=== PATIENT | male | born 1975 | race Hispanic/Latino ===

== ENCOUNTER → 2024-05-31 | Outpatient (CLI) | payer BC ==
[~2024-05-31] MED LIST: ALBUHFA IH; CARV6.25 PO; CYCL5TAB3 PO; DOCU100C33 PO; FLUT1BLS3 IH; FURO-151 PO; MINO100T10 PO; SACU1TAB PO
== END | disposition home or self-care (01) ==
LOC: WHH 11:18
PROVIDERS: ATTEND Family Medicine
DX: T81.31XA Disruption of external operation (surgical) wound, not elsewhere classified, initial encounter (principal); E11.622 Type 2 diabetes mellitus with other skin ulcer; L98.492 Non-pressure chronic ulcer of skin of other sites with fat layer exposed; L97.811 Non-pressure chronic ulcer of other part of right lower leg limited to breakdown of skin; L98.8 Other specified disorders of the skin and subcutaneous tissue; I87.2 Venous insufficiency (chronic) (peripheral); I11.0 Hypertensive heart disease with heart failure; I50.9 Heart failure, unspecified; G47.33 Obstructive sleep apnea (adult) (pediatric); I89.0 Lymphedema, not elsewhere classified; E78.00 Pure hypercholesterolemia, unspecified; E66.01 Morbid (severe) obesity due to excess calories; I25.10 Atherosclerotic heart disease of native coronary artery without angina pectoris; Z68.44 Body mass index [BMI] 60.0-69.9, adult; Z79.899 Other long term (current) drug therapy; Y83.8 Other surgical procedures as the cause of abnormal reaction of the patient, or of later complication, without mention of misadventure at the time of the procedure; Y92.238 Other place in hospital as the place of occurrence of the external cause
CPT/HCPCS: 99215; A6197; A4450; A6260

== ENCOUNTER 2024-09-07 09:06 | Inpatient (IN) | payer BC ==
[~2024-09-07] VITALS: Ht 170.2 cm; Wt 195.0 kg
--- NOTE | 2024-09-07 09:57 | NUR ---
SPOKE TO [facility] AWARE OF DIRECT ADMISSION, STATES HE WILL COME SEE PT, PENDING ORDERS.
[2024-09-07] MEDS ORDERED: PHARMACY COMMUNICATION MISC SCH (10:30)
[2024-09-07] MEDS ORDERED: hydrALAZine 20MG/ML VIAL IV PRN (10:30)
[2024-09-07] MEDS ORDERED: VANCOMYCIN HCL 1.25 GM/250 ML BAG IV ONE (10:30)
[2024-09-07] MEDS ORDERED: LACTULOSE 20 GM/30 ML UDCUP PO PRN (10:30)
[2024-09-07] MEDS ORDERED: morPHINE 2 MG SYG IVP PRN (10:30)
[2024-09-07] MEDS ORDERED: acetaMINOPHEN 325 MG TAB PO PRN (10:30)
[2024-09-07] MEDS ORDERED: CARV12.511 PO (10:42)
[2024-09-07] MEDS ORDERED: SACU1TAB7 PO (10:42)
[2024-09-07] MEDS ORDERED: VITAD50000 PO (10:42)
[2024-09-07] MEDS ORDERED: LINE600T14 PO (10:43)
[2024-09-07] MEDS ORDERED: PoTASSium chloRIDE 20MEQ ER 20 MEQ ERTAB PO PRN (11:00)
[2024-09-07] MEDS ORDERED: PoTASSium chloRIDE 20MEQ/100ML 100 ML IV PRN (11:00)
[2024-09-07] MEDS ORDERED: DEXTROSE 50%-WATER 50 ML DISP.SYRIN IV PRN (11:00)
[2024-09-07] MEDS ORDERED: GLUCAGON 1MG KIT 1 MG ML IM PRN (11:00)
[2024-09-07] MEDS ORDERED: PoTASSium chl 10% ELIXIR 20MEQ 20 MEQ/15 ML UDCUP PO PRN (11:00)
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
[2024-09-07 11:25] LABS: BASOPHILS # (AUTO) 0.03 K/uL (0.00-0.20); BASOPHILS % (AUTO) 0.7 % (0.0-5.0); EOSINOPHILS # (AUTO) 0.08 K/uL (0.00-0.70); HEMATOCRIT 40.9 % (42-54); IMMATURE GRANULOCYTE ABSOLUTE 0.02 K/uL (0-1); LYMPHOCYTES # (AUTO) 0.5 K/uL (1.0-4.8); MEAN CORPUSCULAR HEMOGLOBIN 27.2 pg (27.0-33.0); MEAN CORPUSCULAR HGB CONC 29.8 g/dL (32.0-36.0); MEAN CORPUSCULAR VOLUME 91.1 fL (79-99); MONOCYTES # (AUTO) 0.5 K/uL (0.1-1.0); MONOCYTES % (AUTO) 12.8 % (3.0-13.0); NEUTROPHILS # (AUTO) 2.9 K/uL (1.8-7.7); PLATELET COUNT (AUTO) 254 K/uL (130-400); RED BLOOD CELL COUNT(AUTO) 4.49 MIL/uL (4.50-6.20); RED CELL DISTRIBUTION WIDTH 15.4 % (11.0-15.5); WHITE BLOOD COUNT (AUTO) 4.1 K/uL (4.8-10.8)
[2024-09-07] MEDS ORDERED: VANCOMYCIN PROTOCOL PER PHARMACY IV SCH (11:30)
[2024-09-07] MEDS: INSULIN humuLIN R 100 UNIT/ML 3ML SQ SCH (11:30)
[2024-09-07] MEDS: VANCOMYCIN 2GM/500 ML BAG 500 ML IV ONE (12:29)
[2024-09-07 12:30] LABS: ERYTHROCYTE SEDIMENTATION RATE 93 MM/HR (0-15)
[2024-09-07] MEDS: metRONIDazole 500MG/100ML BAG IV SCH (12:31)
[2024-09-07] MEDS: ceFEPime HCL 2 GM VIAL IVPB SCH (12:31)
--- NOTE | 2024-09-07 12:36 | NUR ---
NURSING: WENT INTO ROOM TO CHECK GLUCOSE, PT AND STATE PT IS NOT DIABETIC, PT WAS PREVIOUSLY ON INSULIN, BUT NOT NOW, PT IS REFUSING GLUCOSE CHECKS. WILL LET PROVIDER KNOW.
--- NOTE | 2024-09-07 12:49 | HMCIMG ---
CT RIGHT LOWER EXTREMITY WITHOUT CONTRAST INDICATION: Right lower extremity gangrene COMPARISON: None TECHNIQUE: Contiguous axial computed tomography imaging using 3 mm slice thickness was obtained through the right leg without contrast material. Coronal and sagittal reconstructions were also obtained. CT was performed with one or more of the following dose reduction techniques: Automated exposure control, adjustment of the mA and/or kV according to patient size, or use of iterative reconstruction technique. FINDINGS/IMPRESSION: Mild to moderate soft tissue swelling along the mid to distal right leg. Large soft tissue wound along the anteromedial proximal to mid right leg without subjacent organized/general fluid collection, subcutaneous emphysema, myoedema, or any periosteal reaction, cortical erosive changes, or any abnormal subperiosteal bone resorption to suggest osteomyelitis.
--- NOTE | 2024-09-07 13:13 | NUR ---
REPORT GIVEN TO AMMON JOYNER AT 1300, PT STABLE NO C/O PAIN NOW, AT BEDSIDE.
[2024-09-07 13:45] VITALS: BP 173/97; PULSE 93; RESP 18; TEMP 97.9
--- NOTE | 2024-09-07 13:59 | NUR ---
DCP: HOME met with pt and his Charisma Rosales [phone]. Pt reports he was laid off from work last week. 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 does pt's wound care and changes his dressing 2x a day. pt has no DME or in home care services. PCP is Padmini Schneider at [facility] and uses [facility] for rx. Pt refuses to consider SNF or LTAC and will return home at hi. to transport Addendum: 09/07/24 at 1404 by CINDI KIRAN Amended: Links added.
--- NOTE | 2024-09-07 14:00 | NUR ---
PT is received from ER He is in no distress and is with his during admission. He is oriented to the room and the use of the call light. Surgical cosult Dr Negron was notified of the consultaion. IV antibiotics are infusing by PIV. The call craven is left in reach and the bed in a low position.
--- NOTE | 2024-09-07 14:04 | HMCIMG ---
ULTRASOUND VENOUS DOPPLER, BILATERAL LOWER EXTREMITIES INDICATION: Bilateral lower extremity pain and swelling TECHNIQUE: Routine grayscale and color Doppler ultrasound of the bilateral lower extremity veins performed. COMPARISON: No priors. FINDINGS: The demonstrated veins of the bilateral lower extremity including the common femoral vein, femoral vein, and popliteal vein are associated with normal compressibility, augmentation, and flow. Normal respiratory variation was identified. No evidence for echogenic intraluminal thrombus formation. 3.7 x 1.8 x 2.5 cm posterior left knee gastrocnemius semimembranosus bursal cyst. IMPRESSION: No sonographic evidence for deep venous thrombosis within the bilateral lower extremity veins. 3.7 x 1.8 x 2.5 cm posterior left knee gastrocnemius semimembranosus bursal cyst.
--- NOTE | 2024-09-07 14:04 | HMCIMG ---
ULTRASOUND ARTERIAL DUPLEX LOWER EXTREMITY, BILATERAL INDICATION: Peripheral vascular disease. TECHNIQUE: Routine grayscale, color Doppler, and power Doppler ultrasound of the bilateral lower extremity arteries were obtained. COMPARISON: None FINDINGS: Velocities in cm/sec. Examination is slightly limited secondary to patient body habitus. RIGHT: ROOM SERVICE WAITER/WAITRESS: 153 SFA: Prox 83, Mid 93, Distal 81 Popliteal: 59 proximally and 84 distally Anterior Tibial: 58 distally Posterior Tibial: 35 Dorsalis Pedis: 63 Triphasic flow along the right lower extremity arterial system. LEFT: ROOM SERVICE WAITER/WAITRESS: 133 SFA: Prox 81, Mid 46, Distal 67 Popliteal: 46 proximally and 63 distally Anterior Tibial: 53 distally Posterior Tibial: 53 Dorsalis Pedis: 48 Triphasic flow along the left lower extremity arterial system. Mild calcific plaque along the bilateral lower extremity arterial system marcus. IMPRESSION: Limitations as reported. No evidence for high-grade flow-rate limiting stenosis. Parameters as reported.
--- NOTE | 2024-09-07 15:24 | NUR ---
[facility] Consult: Patient assessed by wound healing team. See wound assessment. Assessment and recommendations provided to primary nurse. Education provided. Wound care done. Addendum: 09/08/24 at 1614 by ROCK HUNT RN RN/ Amended: Links added.
--- NOTE | 2024-09-07 15:56 | CONS ---
MIRYAM GAMEZ Jr. 09/07/24 1556: CONSULT NOTE: Consulting physician: Tej Consulting service: General surgery Reason for consultation: Right lower extremity wound History of present illness: This is a 48-year-old male with a medical history listed below that has been consulted to surgery for nonhealing lower extremity wound that has developed over the last few weeks. Patient has been seeing Wound Care but due to concerns of worsening gangrenous presentation patient was brought to the hospital for further evaluation. Initial imaging concerning for open wound with gangrenous findings and versus cyst noted nearby appearing similar to abscess. Wound care has evaluated patient will be placing Dakin's WBCs 4.1 with a hemoglobin of 12.2. Patient is currently IV fluids and IV antibiotics. Patient is NPO. Medical history: Type 2 diabetes Hypertension Peripheral Vascular disease Surgical history: None reported Review of systems: General: No Fever, No Chills, No Night Sweats, No Fatigue, No Malaise, No Appetite, No Other HEENT: No Head Aches, No Visual Changes, No Eye Pain, No Ear Pain, No Dysphasia, No Sinus Congestion, No Post Nasal Drip, No Sore Throat, No Other Pulmonary: No Dyspnea, No Cough, No Pleuritic Chest Pain, No Other Cardiovascular: No: Chest Pain, Palpitations, Orthopnea, Paroxysmal No Dyspnea, Edema, Lt Headedness, Other Gastrointestinal: No: Nausea, Vomiting, Diarrhea, Constipation, Melena, Hematochezia, Other Genitourinary: No Dysuria, No Frequency, No Incontinence, No Hematuria, No Retention, No Other Musculoskeletal: No: other, neck pain, shoulder pain, arm pain, back pain, hand pain, leg pain, foot pain Skin: No Urticaria, No Rash, No Other Neurological: No: Weakness, Numbness, Incoordination, Change in speech, Confusion, Seizures, Other Physical exam: General: Awake alert and oriented Heart: Regular rate and rhythm} Lungs: Clear to auscultation no distress Abdomen: [Soft, nontender, nondistended Right lower extremity with infected right lower extremity wound and possible forming abscess Assessment: This is a 48-year-old male with concerns of right lower extremity wound Plan: Patient to continue with wound care recommendations Plan will be for debridement with Dr. Sharif Patient to continue with the IV fluids and IV antibiotics Warm compresses to be applied to lower extremity and possible abscess site Dr. Sharif to be updated on patient's status and surgical team to follow patient closely RAINER SHARIF MD 09/09/24 1510: CONSULT NOTE: as above patient seen and evaluated will proceed with debridement of 7 RLE wounds. MIRYAM GAMEZ Jr. Sep 07, 2024 15:56 RAINER SHARIF MD Sep 09, 2024 15:10
[2024-09-07 17:11] VITALS: BP 171/101; PULSE 94; RESP 18; TEMP 97.9
[2024-09-07 20:00] VITALS: BP 141/80; PULSE 99; RESP 20; TEMP 98
[2024-09-07] MEDS: ENOXAPARIN SODIUM 40 MG/0.4 ML SYRINGE SQ SCH (21:05)
[2024-09-08] VITALS (7 sets, daily range): BP systolic 133–164; BP diastolic 82–98; PULSE 90–98; RESP 20; TEMP 97.8–99; O2SAT 95
--- NOTE | 2024-09-08 06:17 | CONS ---
INFECTIOUS DISEASE CONSULTATION NOTE DATE OF SERVICE: 09/07/2024 REQUESTING PHYSICIAN: Parisa Solorzano NP REASON FOR CONSULTATION: Right leg ulcer and abscess. HISTORY OF PRESENT ILLNESS: A 48-year-old male with morbid obesity, obstructive sleep apnea, diabetes mellitus, who presented to the hospital with right leg ulcer and swelling. The patient noticed to have ulceration to the right leg, for which he was getting antibiotic [facility]. Due to increasing redness and pain, presented to the hospital for further care. Venous Doppler has been done, pending official report. The patient has been started on vancomycin, cefepime, and Flagyl. The patient is known to me from previous admission, was found to have left groin pseudoaneurysm and wound infection. The patient denied cough, shortness of breath. No fever, no chills. PAST MEDICAL HISTORY: * Morbid obesity. * Diabetes mellitus. * Hypertension. * Peripheral vascular disease. * Presumed multidrug resistant organism. * Obstructive sleep apnea. * Lower extremity cellulitis. * Multiple skin ulcers. PAST SURGICAL HISTORY: * Angiogram and stenting of the iliac vein. * Left groin wound infection, status post debridement. ALLERGIES: No known drug allergy. CURRENT MEDICATIONS: Include: * Vancomycin. * Cefepime. * Flagyl. * Lovenox. * Insulin. SOCIAL HISTORY: . No alcohol, tobacco, or illicit drug use. FAMILY HISTORY: Noncontributory. REVIEW OF SYSTEMS: Greater than 10 systems were reviewed and negative except as documented above. PHYSICAL EXAMINATION: GENERAL: On examination, young male, awake, in no acute distress. VITAL SIGNS: Temperature 97.5, pulse 100, respiratory rate 18, BP 164/97. EYES: No icterus. Pupils equal and reactive. HENT: No oral thrush seen. Moist oral mucosa. NECK: Supple. No JVD or thyromegaly. LUNGS: Good air entry. No rales, no rhonchi. CARDIOVASCULAR: S1, S2 regular, tachycardic. No murmur heard. ABDOMEN: Morbidly obese, soft, nontender. Bowel sound is present. CENTRAL NERVOUS SYSTEM: Awake, alert, oriented x 3. No focal deficits. SKIN: Extensive pustules involving the abdominal wall and the lower extremities ____ involving the anterior aspect of the right leg with necrosis. So, there is area of fluctuance and abscess involving plantar aspect of the right leg. There is an ulcer involving the anterior right thigh. LABORATORY DATA: WBC 4.1, hemoglobin 12.2, platelet 254. RADIOLOGY: Venous Doppler pending. ASSESSMENT: A 48-year-old male presenting with leg ulcer, groin swelling, and redness. CURRENT PROBLEMS: Include: * Right lower extremity ulcer. * Right leg abscess. * Generalized pustulosis. * Cellulitis. * Morbid obesity. * Diabetes mellitus. * Obstructive sleep apnea. PLAN: * Continue cefepime. * Continue vancomycin. * Continue Flagyl. * Continue Hibiclens shower. * Continue DVT prophylaxis. * Monitor electrolytes. * Continue pain management. * The patient will be followed up closely. Thank you for allowing me to participate in the care of this patient. TID: [id number] RECEIPT: [id number]
[2024-09-08 06:50] LABS: BASOPHILS # (AUTO) 0.04 K/uL (0.00-0.20); EOSINOPHILS # (AUTO) 0.21 K/uL (0.00-0.70); HEMATOCRIT 36.3 % (42-54); IMMATURE GRANULOCYTE ABSOLUTE 0.02 K/uL (0-1); LYMPHOCYTES # (AUTO) 0.5 K/uL (1.0-4.8); LYMPHOCYTES % (AUTO) 11.2 % (21.0-51.0); MEAN CORPUSCULAR HEMOGLOBIN 27.3 pg (27.0-33.0); MEAN CORPUSCULAR HGB CONC 30.6 g/dL (32.0-36.0); MEAN CORPUSCULAR VOLUME 89.4 fL (79-99); MONOCYTES # (AUTO) 0.5 K/uL (0.1-1.0); MONOCYTES % (AUTO) 12.2 % (3.0-13.0); NEUTROPHILS # (AUTO) 2.9 K/uL (1.8-7.7); NEUTROPHILS % (AUTO) 70.1 % (40.0-77.0); PLATELET COUNT (AUTO) 244 K/uL (130-400); RED BLOOD CELL COUNT(AUTO) 4.06 MIL/uL (4.50-6.20); RED CELL DISTRIBUTION WIDTH 15.7 % (11.0-15.5); WHITE BLOOD COUNT (AUTO) 4.2 K/uL (4.8-10.8)
[2024-09-08 06:58] LABS: CREATININE 0.7 mg/dL (0.5-1.3); MAGNESIUM 1.7 mg/dL (1.80-2.40); POTASSIUM 4.1 mmol/L (3.5-5.1)
[2024-09-08] MEDS: HONEY 1 APPL/ML TUBE TP SCH (10:37)
[2024-09-08] MEDS: SODIUM HYPOCHLORITE 0.25% [HALF STRENGTH] 473 ML TOPICAL SOLN TP SCH (10:37)
--- NOTE | 2024-09-08 12:47 | PN ---
[facility] PROGRESS NOTE Date Patient Seen: Sep 08, 2024 Time of Visit: 12:27 Supervising Physician: [Dr. Jett] Primary Care Physician: Dr. Christina Schneider Outpatient Specialists: Wound care Inpatient Consults: Wound care, ID and Gen surgery PROBLEM LIST: Right leg gangrenous wound. Diabetes mellitius type2 Hypertension May-Thurner syndrome Protein malnutrition Severe Obesity - BMI 67.3 Hx of multidrug resistant organism Acinetobacter Baumanni left inquinal surgical wound. Hx of left inguinal surgical wound complications status post foreign body removal in the left common femoral artery and vein by Dr. Park on 05/04/24 with Wound Vac Hx left inguinal soft tissue hematoma 7 x [address] scan on 05/20/2024 Plan: Continue IV abx per ID, pending wound cultures Pending I&D on with general surgery GI and DVT ppx INTERVAL HISTORY: [Patient is evaluated at bedside. Continues with wound care per wound care recommendation. No osteomyelitis per CT lower extremity. Labs WNL. He is pending I&D per General surgery on . We will continue IV antibiotics in the meantime. Pending wound culture results. Venous doppler negative for DVT. Pain is well controlled.] REVIEW OF SYSTEMS: 12 point ROS reviewed with patient. Pertinent positives mentioned above. Otherwise negative. PHYSICAL EXAM: GENERAL: Alert, weak, awake oriented x 3. Severely obese HEENT: EOMI, Sclera non icteric, moist mucosa NECK: Supple, no JVD, trachea midline LUNGS: Clear breath sounds bilaterally. No wheezes HEART: Regular rate and rhythm. Normal S1 and S2, without murmurs ABD: Abdomen soft, nontender. Bowel sounds present EXT: No clubbing cyanosis or edema. RLE necrotic wound with purulent drainage NEURO: Alert and oriented to person, follows commands Vital Signs (last 8hr) Date Time Temp Pulse Resp B/P (MAP) Pulse Ox O2 Delivery O2 Flow Rate FiO2 09/08/24 08:00 97.9 90 20 133/90 95 Room Air LABS: Hematology Labs: Test 09/08/24 06:36 09/07/24 11:17 Range/Units White Blood Count 4.2 L 4.8-10.8 K/uL Red Blood Count 4.06 L 4.50-6.20 MIL/uL Hemoglobin 11.1 L 14.0-18.0 g/dL Hematocrit 36.3 L 42-54 % Mean Corpuscular Volume 89.4 79-99 fL Mean Corpuscular Hemoglobin 27.3 27.0-33.0 pg Mean Corpuscular Hemoglobin Concent 30.6 L 32.0-36.0 g/dL Red Cell Distribution Width 15.7 H 11.0-15.5 % Platelet Count 244 130-400 K/uL Mean Platelet Volume 9.5 7.5-10.5 fL Immature Granulocyte % (Auto) 0.5 0-1 % Neutrophils (%) (Auto) 70.1 40.0-77.0 % Lymphocytes (%) (Auto) 11.2 L 21.0-51.0 % Monocytes (%) (Auto) 12.2 3.0-13.0 % Eosinophils (%) (Auto) 5.0 0.0-8.0 % Basophils (%) (Auto) 1.0 0.0-5.0 % Neutrophils # (Auto) 2.9 1.8-7.7 K/uL Lymphocytes # (Auto) 0.5 L 1.0-4.8 K/uL Monocytes # (Auto) 0.5 0.1-1.0 K/uL Eosinophils # (Auto) 0.21 0.00-0.70 K/uL Basophils # (Auto) 0.04 0.00-0.20 K/uL Absolute Immature Granulocyte (auto 0.02 0-1 K/uL Nucleated Red Blood Cells 0.0 0.0-0.19 % Red Blood Cell Morphology ANISO 1+ Erythrocyte Sedimentation Rate 93 H 0-15 MM/HR Chemistry Labs: Test 09/08/24 06:36 09/07/24 11:17 Range/Units Sodium Level 138 136-145 mmol/L Potassium Level 4.1 3.5-5.1 mmol/L Chloride Level 103 101-111 mmol/L Carbon Dioxide Level 28 21-32 mmol/L Blood Urea Nitrogen 12 7-18 mg/dL Creatinine 0.7 0.5-1.3 mg/dL Glomerular Filtration Rate Calc 113 >90 mL/min Random Glucose 97 70-105 mg/dL Total Calcium 8.9 8.5-10.1 mg/dL Magnesium Level 1.70 L 1.80-2.40 mg/dL Lactic Acid Level 1.6 0.8-2.5 mmol/L C-Reactive Protein, Quantitative 38.90 H 0.5-3.0 mg/L Procalcitonin < 0.05 L 0.05-0.5 ng/mL DIAGNOSTICS / RADIOLOGY RESULTS: [ ] PLAN Diet: Heart healthy HTN: Hydralazine for systolic BP greater than 160. DM: Insulin sliding scale as ordered. DVT prophylaxis: Lovenox . GI prophylaxis: Protonix. Antiemetic: Zofran. Constipation: Lactulose. Pain: Tylenol /[place]/morphine for pain management and will adjust management as necessary. NEURO: Minimize central acting medications as possible. Maintain fall precautions, adequate lighting during the day PULMONARY: Supplemental 02 as needed. Maintain aspiration precautions at all times CARDIOVASCULAR: Follow hemodynamics. Vital signs per facility protocol GI & NUTRITION: Continue with nutritional support. Continue stool softeners and laxatives as needed. KIDNEYS & ELECTROLYTES: Strict monitoring of intake, output and overall fluid balance. Avoid nephrotoxic medications to the extent possible. Medications to be dosed according to renal function. Monitor electrolytes and replace as needed ENDOCRINE: Maintain blood glucose between 100-180 at all times. Hypoglycemia protocol in place INFECTIOUS DISEASE: Trend temperature, WBC and procalcitonin level Follow cultures, deescalate antibiotics as soon as possible. Panculture if new onset fever ONCOLOGY/HEMATOLOGY/COAGULATION: Monitor for s/s of bleeding Monitor hemoglobin, coagulation studies as needed SKIN: Pressure ulcer prevention per facility protocol Specialty mattress ORTHO/REHAB: Continue PT/OT Prophylaxis: Continue GI and DVT prophylaxis Code Status: Full Resuscitation Disposition: TBD Other: Total patient care time exceeds 35 minutes excluding all procedures. MANJINDER REDMOND Sep 08, 2024 12:47
[2024-09-08] MEDS: VANCOMYCIN 1.75 GM/250 ML BAG 250 ML IV SCH (13:10)
[2024-09-08 13:28] LABS: INR 1.08 (0.85-1.15); PROTHROMBIN TIME 11.4 SEC (9.6-11.6)
--- NOTE | 2024-09-08 14:42 | NUR ---
[facility] Follow-up: Patient re-assessed by wound healing team. See wound assessment. Assessment and recommendations provided to primary nurse. Education provided. Addendum: 09/08/24 at 1643 by ROCK HUNT RN RN/ Amended: Links added.
--- NOTE | 2024-09-08 18:16 | CONS ---
CONSULTATION NOTE Date of Service: Sep 08, 2024 Reason for Consultation: [ ] Requesting Physician: [ ] HISTORY OF PRESENT ILLNESS: [ ] REVIEW OF SYSTEMS CONSTITUTIONAL: Denies fever, chills, or fatigue. HEAD/FACE: No signs of trauma. EENT: Denies eye pain, blurred vision, double vision, or light sensitivity. RESPIRATORY: Denies shortness of breath, cough, wheezing CARDIOVASCULAR: Denies chest pain, palpitation, syncope GASTROINTESTINAL/ABDOMINAL: Denies abdominal pain, constipation, diarrhea, nausea or vomiting GENITOURINARY: Denies dysuria or hematuria. MUSCULOSKELETAL: Denies joint pain, tenderness, or trauma. INTEGUMENTARY: Denies rash or itchiness NEUROLOGICAL/PSYCH: Denies anxiety, depression, heat or cold intolerance. PAST MEDICAL HISTORY: [ ] PAST SURGICAL HISTORY: [ ] PAST SOCIAL HISTORY: [ ] FAMILY HISTORY: [ ] Coded Allergies: No Known Allergies (Unverified Allergy, Unknown, 04/28/24) PHYSICAL EXAM EYES: Anicteric. Pupils equal and reactive. HENT: No oral thrush seen, moist Oral mucosa NECK: Supple, no JVD or thyromegaly. LUNGS: Good air entry. No rales, no rhonchi. CARDIOVASCULAR: S1, S2 regular. No murmur heard. ABDOMEN: Soft, non tender, bowel sounds present, no organomegaly CENTRAL NERVOUS SYSTEM: Awake, alert, oriented x 3. No focal deficits. SKIN: No rashes, no swelling. LYMPHATICS: No peripheral lymphadenopathy MUSCULOSKELETAL: No joint swelling, erythema or tenderness. EXTREMITIES: No cyanosis or clubbing BACK: No deformity, no pressure ulcer. GENITOURINARY: No dysuria or hematuria Vital Sign (Last 24 Hours) 09/07/24 09/08/24 09:32 16:00 Temp 98.1 Pulse 90 Resp 20 B/P (MAP) 145/98 Pulse Ox 96 O2 Delivery Room Air O2 Flow Rate 0 FiO2 21 LABS: Laboratory: Test 09/08/24 13:12 09/08/24 06:36 09/07/24 11:17 Range/Units Prothrombin Time 11.4 9.6-11.6 SEC Prothromb Time International Ratio 1.08 0.85-1.15 White Blood Count 4.2 L 4.8-10.8 K/uL Red Blood Count 4.06 L 4.50-6.20 MIL/uL Hemoglobin 11.1 L 14.0-18.0 g/dL Hematocrit 36.3 L 42-54 % Mean Corpuscular Volume 89.4 79-99 fL Mean Corpuscular Hemoglobin 27.3 27.0-33.0 pg Mean Corpuscular Hemoglobin Concent 30.6 L 32.0-36.0 g/dL Red Cell Distribution Width 15.7 H 11.0-15.5 % Platelet Count 244 130-400 K/uL Mean Platelet Volume 9.5 7.5-10.5 fL Immature Granulocyte % (Auto) 0.5 0-1 % Neutrophils (%) (Auto) 70.1 40.0-77.0 % Lymphocytes (%) (Auto) 11.2 L 21.0-51.0 % Monocytes (%) (Auto) 12.2 3.0-13.0 % Eosinophils (%) (Auto) 5.0 0.0-8.0 % Basophils (%) (Auto) 1.0 0.0-5.0 % Neutrophils # (Auto) 2.9 1.8-7.7 K/uL Lymphocytes # (Auto) 0.5 L 1.0-4.8 K/uL Monocytes # (Auto) 0.5 0.1-1.0 K/uL Eosinophils # (Auto) 0.21 0.00-0.70 K/uL Basophils # (Auto) 0.04 0.00-0.20 K/uL Absolute Immature Granulocyte (auto 0.02 0-1 K/uL Nucleated Red Blood Cells 0.0 0.0-0.19 % Sodium Level 138 136-145 mmol/L Potassium Level 4.1 3.5-5.1 mmol/L Chloride Level 103 101-111 mmol/L Carbon Dioxide Level 28 21-32 mmol/L Blood Urea Nitrogen 12 7-18 mg/dL Creatinine 0.7 0.5-1.3 mg/dL Glomerular Filtration Rate Calc 113 >90 mL/min Random Glucose 97 70-105 mg/dL Total Calcium 8.9 8.5-10.1 mg/dL Magnesium Level 1.70 L 1.80-2.40 mg/dL Red Blood Cell Morphology ANISO 1+ Erythrocyte Sedimentation Rate 93 H 0-15 MM/HR Lactic Acid Level 1.6 0.8-2.5 mmol/L C-Reactive Protein, Quantitative 38.90 H 0.5-3.0 mg/L Procalcitonin < 0.05 L 0.05-0.5 ng/mL DIAGNOSTICS / RADIOLOGY: [ ] PROBLEM LIST : PLAN: [ ] BARBARA ROBERTSON MD Sep 08, 2024 18:16
--- NOTE | 2024-09-08 20:34 | PN ---
INFECTIOUS DISEASE PROGRESS NOTE Date of Service: Sep 08, 2024 SUBJECTIVE: This is a 48-year-old male patient who was seen and examined at bedside in room 327. Patient is awake, alert and oriented x3. Patient with a draining wound to the right inner leg. Patient also has an open wound on the right thigh and an abscess on the right lower leg. We will follow up on the culture results. Patient has been evaluated by the surgical team. No fever, temperature is 97.9. Patient will continue on cefepime and vancomycin. No episodes of nausea or vomiting reported. Will continue to follow patient's care. PHYSICAL EXAM EYES: Anicteric. Pupils equal and reactive. HENT: No oral thrush seen, moist Oral mucosa. NECK: Supple, no JVD or thyromegaly. LUNGS: Good air entry. No rales, no rhonchi. CARDIOVASCULAR: S1, S2 regular. No murmur heard. ABDOMEN: Soft, non tender, bowel sounds present, no organomegaly. CENTRAL NERVOUS SYSTEM: Awake, alert, oriented x 3. SKIN: No rashes, no swelling. LYMPHATICS: No peripheral lymphadenopathy. MUSCULOSKELETAL: No joint swelling, erythema or tenderness. EXTREMITIES: No cyanosis or clubbing. BACK: No deformity, no pressure ulcer. GENITOURINARY: No dysuria or hematuria. Vital Sign (Last 12 Hours) 09/08/24 09/08/24 12:00 16:00 Temp 98.1 98.1 Pulse 91 90 Resp 20 20 B/P (MAP) 143/83 145/98 Pulse Ox 95 96 O2 Delivery Room Air Room Air LABS: Laboratory: Test 09/08/24 13:12 09/08/24 06:36 09/07/24 11:17 Range/Units Prothrombin Time 11.4 9.6-11.6 SEC Prothromb Time International Ratio 1.08 0.85-1.15 White Blood Count 4.2 L 4.8-10.8 K/uL Red Blood Count 4.06 L 4.50-6.20 MIL/uL Hemoglobin 11.1 L 14.0-18.0 g/dL Hematocrit 36.3 L 42-54 % Mean Corpuscular Volume 89.4 79-99 fL Mean Corpuscular Hemoglobin 27.3 27.0-33.0 pg Mean Corpuscular Hemoglobin Concent 30.6 L 32.0-36.0 g/dL Red Cell Distribution Width 15.7 H 11.0-15.5 % Platelet Count 244 130-400 K/uL Mean Platelet Volume 9.5 7.5-10.5 fL Immature Granulocyte % (Auto) 0.5 0-1 % Neutrophils (%) (Auto) 70.1 40.0-77.0 % Lymphocytes (%) (Auto) 11.2 L 21.0-51.0 % Monocytes (%) (Auto) 12.2 3.0-13.0 % Eosinophils (%) (Auto) 5.0 0.0-8.0 % Basophils (%) (Auto) 1.0 0.0-5.0 % Neutrophils # (Auto) 2.9 1.8-7.7 K/uL Lymphocytes # (Auto) 0.5 L 1.0-4.8 K/uL Monocytes # (Auto) 0.5 0.1-1.0 K/uL Eosinophils # (Auto) 0.21 0.00-0.70 K/uL Basophils # (Auto) 0.04 0.00-0.20 K/uL Absolute Immature Granulocyte (auto 0.02 0-1 K/uL Nucleated Red Blood Cells 0.0 0.0-0.19 % Sodium Level 138 136-145 mmol/L Potassium Level 4.1 3.5-5.1 mmol/L Chloride Level 103 101-111 mmol/L Carbon Dioxide Level 28 21-32 mmol/L Blood Urea Nitrogen 12 7-18 mg/dL Creatinine 0.7 0.5-1.3 mg/dL Glomerular Filtration Rate Calc 113 >90 mL/min Random Glucose 97 70-105 mg/dL Total Calcium 8.9 8.5-10.1 mg/dL Magnesium Level 1.70 L 1.80-2.40 mg/dL Red Blood Cell Morphology ANISO 1+ Erythrocyte Sedimentation Rate 93 H 0-15 MM/HR Lactic Acid Level 1.6 0.8-2.5 mmol/L C-Reactive Protein, Quantitative 38.90 H 0.5-3.0 mg/L Procalcitonin < 0.05 L 0.05-0.5 ng/mL ASSESSMENT: Right lower extremity abscess. Right leg ulcer. Right thigh wound. Generalized pustulosis. Cellulitis to the lower extremity. Diabetes mellitus. Peripheral vascular disease. Morbid obesity. Recent right iliofemoral venogram/IVUS. May-Thurner syndrome. PLAN: Continue cefepime. Continue vancomycin. Continue metronidazole. Continue wound care. Continue pain management. We will follow up on the cultures results. We will monitor electrolytes. This case was reviewed and discussed with my supervising physician and the above assessment and plan was formulated and agreed upon. ATTESTATION BY PHYSICIAN I have seen and examined the patient. I reviewed the documentation, medical decision making, and treatment plan as noted by the mid-level provider above. I agree with the findings and plan of care. CHATO BRIAN MD, [facility]IRTA [facility] Sep 08, 2024 20:34
[2024-09-08] MEDS: MAGNESIUM 2GM PREMIX 50ML 50 ML IV PRN (21:30)
[2024-09-09] VITALS (30 sets, daily range): BP systolic 125–160; BP diastolic 77–99; PULSE 64–111; RESP 10–24; TEMP 97.5–98.7; O2SAT 96
[2024-09-09 06:05] LABS: BASOPHILS # (AUTO) 0.02 K/uL (0.00-0.20); BASOPHILS % (AUTO) 0.5 % (0.0-5.0); EOSINOPHILS # (AUTO) 0.18 K/uL (0.00-0.70); EOSINOPHILS % (AUTO) 4.1 % (0.0-8.0); HEMATOCRIT 37.1 % (42-54); IMMATURE GRANULOCYTE ABSOLUTE 0.02 K/uL (0-1); LYMPHOCYTES # (AUTO) 0.5 K/uL (1.0-4.8); LYMPHOCYTES % (AUTO) 11.3 % (21.0-51.0); MEAN CORPUSCULAR HGB CONC 30.5 g/dL (32.0-36.0); MEAN CORPUSCULAR VOLUME 88.8 fL (79-99); MONOCYTES # (AUTO) 0.5 K/uL (0.1-1.0); MONOCYTES % (AUTO) 11.3 % (3.0-13.0); NEUTROPHILS # (AUTO) 3.2 K/uL (1.8-7.7); NEUTROPHILS % (AUTO) 72.3 % (40.0-77.0); PLATELET COUNT (AUTO) 234 K/uL (130-400); RED BLOOD CELL COUNT(AUTO) 4.18 MIL/uL (4.50-6.20); RED CELL DISTRIBUTION WIDTH 15.7 % (11.0-15.5); WHITE BLOOD COUNT (AUTO) 4.4 K/uL (4.8-10.8)
[2024-09-09 06:51] LABS: CREATININE 0.7 mg/dL (0.5-1.3); POTASSIUM 3.8 mmol/L (3.5-5.1)
[2024-09-09] MEDS: FAMOTIDINE 20MG VIAL IV ONE (12:03)
[2024-09-09] MEDS: acetaMINOPHEN 100 ML ONE (12:03)
[2024-09-09] MEDS ORDERED: proPOFol 10 MG/ML 20ML VIAL IV ONE (12:08)
[2024-09-09] MEDS ORDERED: FENTanyl CITRate PF 50 MCG/1 ML 2ML VIAL ONE (12:08)
[2024-09-09] MEDS ORDERED: rocuRONium bROMide 10MG/1ML 5ML VL ONE ×2 (12:08→13:52)
[2024-09-09] MEDS ORDERED: ketaMINE 50MG/ML SYRINGE 50 MG/ML DISP.SYRIN ONE (12:33)
[2024-09-09] MEDS ORDERED: GLYCOPYRROLATE 0.2 MG/ML 5 ML VIAL ONE (12:35)
[2024-09-09] MEDS ORDERED: ondanSETRON 4MG INJ ONE (12:44)
[2024-09-09] MEDS ORDERED: dexaMETHasone SOD PHOSPHATE 10MG/ML 1ML VIAL ONE (12:44)
[2024-09-09] MEDS ORDERED: NEOSTIGMINE METHYLSULFATE 1MG/ML IV ONE (14:36)
[2024-09-09] MEDS: FENTanyl CITRate PF 50 MCG/1 ML 2ML VIAL ONE (15:08)
--- NOTE | 2024-09-09 15:14 | OP ---
Operative Note: DATE OF PROCEDURE: 09/09/24 SURGEON: RAINER SHARIF MD PRODUCT PICKER: [facility] staff ANESTHESIA: General PREOPERATIVE DIAGNOSIS: Gangrenous Right lower extremity ulcers/wounds POSTOPERATIVE DIAGNOSIS: Gangrenous right lower extremity ulcers/wounds PROCEDURE: debridement of right lower extremity ulcers/wounds x 7 ESTIMATED BLOOD LOSS: 300 ml INDICATIONS: This is a 48-year-old male with severe morbid obesity with a BMI of 67.3. Who has a history of chronic nonhealing right lower extremity wounds. He has a history of May-Thurner syndrome. He was admitted to the hospital with multiple gangrenous right lower extremity wounds. He had normal arterial Dopplers flow studies. He had no evidence of a DVT in the right lower extremity preoperatively. A debridement of all of these wounds on his right lower extremity was indicated. DESCRIPTION OF PROCEDURE: The patient was taken to the operating room and placed on the operating table in supine position. Next general anesthesia was induced and the patient was intubated. His right lower extremity was prepped and draped in a sterile fashion. Afterwards a time-out was called and the patient's identity, procedure and antibiotics were confirmed. I noted on exam that he had seven active right lower extremity ulcers/wounds. Some of them were gangrenous ulcers. I proceeded to debride five wounds on his proximal right lower extremity (thigh) I excised necrotic and nonviable tissue (skin, subcutaneous tissue). The fascia did not appear to be involved with these wounds. Hemostasis was obtained with electrocautery as well as suture ligation of the superficial vessels and his subcutaneous tissue. Next I debrided to wounds on the lower right leg. He had a gangrenous necrotic ulcer on the medial aspect the lower leg. I excised the necrotic tissue which involves skin, subcutaneous tissue and some fascia. This was debrided with electrocautery and sharp scissors. Hemostasis was also obtained with electrocautery and suture ligation. I debrided the seventh wound on the lateral aspect of the lower extremity. I excised nonviable tissue involving the skin and subcutaneous tissue. The fascia did not appear to be involved. Next I irrigated all seven wounds. I proceeded to pack all the wound with Dakin soaked Kerlix or 1 in plain packing tape I covered these with ABD pad and then wrapped the entire leg with Kerlix and Coban. The patient tolerated the procedure and was taken to recovery room in stable condition. Sponge, needle and instrument counts were accurate. KOLEMAY A Sep 09, 2024 15:14
[2024-09-09] MEDS: ondanSETRON 4MG INJ IVP PRN (15:47)
--- NOTE | 2024-09-09 18:07 | PN ---
[facility] PROGRESS NOTE Date Patient Seen: Sep 09, 2024 Time of Visit: 18:07 Supervising Physician: [Dr. Jett] Primary Care Physician: Dr. Christina Schneider Outpatient Specialists: Wound care Inpatient Consults: Wound care, ID and Gen surgery PROBLEM LIST: Right leg gangrenous wound. 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 Hx of left inguinal surgical wound complications status post foreign body removal in the left common femoral artery and vein by Dr. Park on 05/04/24 with Wound Vac Hx left inguinal soft tissue hematoma 7 x [address] scan on 05/20/2024 Plan: Continue IV abx per ID, pending wound cultures Pending I&D today with general surgery GI and DVT ppx INTERVAL HISTORY: [Patient is evaluated at bedside. Continues with wound care per wound care recommendation. No osteomyelitis per CT lower extremity. Labs WNL. He is pending I&D per General surgery on . We will continue IV antibiotics in the meantime. Pending wound culture results. Venous doppler negative for DVT. Pain is well controlled.] 09/09 Patient is evaluated at bedside. Pending I&D today with general surgery with possible wound vac. Patient may be a candidate for Solara. Will follow up with post surgery recommendations and need for IV abx per ID. Labs and vitals are unremarkable. No wound culture results. REVIEW OF SYSTEMS: 12 point ROS reviewed with patient. Pertinent positives mentioned above. Otherwise negative. PHYSICAL EXAM: GENERAL: Alert, weak, awake oriented x 3. Severely obese HEENT: EOMI, Sclera non icteric, moist mucosa NECK: Supple, no JVD, trachea midline LUNGS: Clear breath sounds bilaterally. No wheezes HEART: Regular rate and rhythm. Normal S1 and S2, without murmurs ABD: Abdomen soft, nontender. Bowel sounds present EXT: No clubbing cyanosis or edema. RLE necrotic wound with purulent drainage NEURO: Alert and oriented to person, follows commands Vital Signs (last 8hr) Date Time Temp Pulse Resp B/P (MAP) Pulse Ox O2 Delivery O2 Flow Rate FiO2 09/09/24 16:00 97.9 74 20 149/88 93 Room Air 09/09/24 15:37 97.7 87 17 149/88 94 Nasal Cannula 3.0 09/09/24 15:32 85 16 153/92 93 Nasal Cannula 3.0 09/09/24 15:27 87 17 154/96 94 Nasal Cannula 3.0 09/09/24 15:22 82 16 154/95 94 Nasal Cannula 3.0 09/09/24 15:17 83 16 156/94 95 Nasal Cannula 3.0 09/09/24 15:12 85 17 151/93 93 Nasal Cannula 3.0 09/09/24 15:07 97 18 147/95 94 Nasal Cannula 3.0 09/09/24 15:02 98 17 147/88 94 Nasal Cannula 3.0 09/09/24 14:57 97 18 151/93 94 Nasal Cannula 3.0 09/09/24 14:52 96 19 148/92 94 Nasal Cannula 3.0 09/09/24 14:47 97.5 93 18 145/98 96 Nonrebreathing Mask 10.0 09/09/24 12:10 98.2 96 24 133/86 96 Room Air 09/09/24 12:00 97.9 92 10 160/98 95 Room Air LABS: Hematology Labs: Test 09/09/24 05:53 Range/Units White Blood Count 4.4 L 4.8-10.8 K/uL Red Blood Count 4.18 L 4.50-6.20 MIL/uL Hemoglobin 11.3 L 14.0-18.0 g/dL Hematocrit 37.1 L 42-54 % Mean Corpuscular Volume 88.8 79-99 fL Mean Corpuscular Hemoglobin 27.0 27.0-33.0 pg Mean Corpuscular Hemoglobin Concent 30.5 L 32.0-36.0 g/dL Red Cell Distribution Width 15.7 H 11.0-15.5 % Platelet Count 234 130-400 K/uL Mean Platelet Volume 9.1 7.5-10.5 fL Immature Granulocyte % (Auto) 0.5 0-1 % Neutrophils (%) (Auto) 72.3 40.0-77.0 % Lymphocytes (%) (Auto) 11.3 L 21.0-51.0 % Monocytes (%) (Auto) 11.3 3.0-13.0 % Eosinophils (%) (Auto) 4.1 0.0-8.0 % Basophils (%) (Auto) 0.5 0.0-5.0 % Neutrophils # (Auto) 3.2 1.8-7.7 K/uL Lymphocytes # (Auto) 0.5 L 1.0-4.8 K/uL Monocytes # (Auto) 0.5 0.1-1.0 K/uL Eosinophils # (Auto) 0.18 0.00-0.70 K/uL Basophils # (Auto) 0.02 0.00-0.20 K/uL Absolute Immature Granulocyte (auto 0.02 0-1 K/uL Nucleated Red Blood Cells 0.0 0.0-0.19 % Chemistry Labs: Test 09/09/24 15:22 09/09/24 05:53 09/08/24 06:36 Range/Units Whole Blood Glucose 119 H 70-110 MG/DL Sodium Level 139 136-145 mmol/L Potassium Level 3.8 3.5-5.1 mmol/L Chloride Level 104 101-111 mmol/L Carbon Dioxide Level 27 21-32 mmol/L Blood Urea Nitrogen 12 7-18 mg/dL Creatinine 0.7 0.5-1.3 mg/dL Glomerular Filtration Rate Calc 113 >90 mL/min Random Glucose 109 H 70-105 mg/dL Total Calcium 8.9 8.5-10.1 mg/dL Magnesium Level 1.70 L 1.80-2.40 mg/dL Coagulation Labs: Test 09/08/24 13:12 Range/Units Prothrombin Time 11.4 9.6-11.6 SEC Prothromb Time International Ratio 1.08 0.85-1.15 DIAGNOSTICS / RADIOLOGY RESULTS: [ ] PLAN Diet: Heart healthy HTN: Hydralazine for systolic BP greater than 160. DM: Insulin sliding scale as ordered. DVT prophylaxis: Lovenox . GI prophylaxis: Protonix. Antiemetic: Zofran. Constipation: Lactulose. Pain: Tylenol /[place]/morphine for pain management and will adjust management as necessary. NEURO: Minimize central acting medications as possible. Maintain fall precautions, adequate lighting during the day PULMONARY: Supplemental 02 as needed. Maintain aspiration precautions at all times CARDIOVASCULAR: Follow hemodynamics. Vital signs per facility protocol GI & NUTRITION: Continue with nutritional support. Continue stool softeners and laxatives as needed. KIDNEYS & ELECTROLYTES: Strict monitoring of intake, output and overall fluid balance. Avoid nephrotoxic medications to the extent possible. Medications to be dosed according to renal function. Monitor electrolytes and replace as needed ENDOCRINE: Maintain blood glucose between 100-180 at all times. Hypoglycemia protocol in place INFECTIOUS DISEASE: Trend temperature, WBC and procalcitonin level Follow cultures, deescalate antibiotics as soon as possible. Panculture if new onset fever ONCOLOGY/HEMATOLOGY/COAGULATION: Monitor for s/s of bleeding Monitor hemoglobin, coagulation studies as needed SKIN: Pressure ulcer prevention per facility protocol Specialty mattress ORTHO/REHAB: Continue PT/OT Prophylaxis: Continue GI and DVT prophylaxis Code Status: Full Resuscitation Disposition: TBD Other: Total patient care time exceeds 35 minutes excluding all procedures. MANJINDER [place] Sep 09, 2024 18:07
--- NOTE | 2024-09-09 23:15 | PN ---
INFECTIOUS DISEASE PROGRESS NOTE Date of Service: Sep 09, 2024 SUBJECTIVE: This is a 48-year-old male patient who was seen and examined at bedside in room 327. Patient is awake, alert and oriented x3. During visit today patient is scheduled for an I&D of the right lower extremity abscess. Will continue on cefepime and vancomycin. Will continue to follow patient's care. PHYSICAL EXAM EYES: Anicteric. Pupils equal and reactive. HENT: No oral thrush seen, moist Oral mucosa. NECK: Supple, no JVD or thyromegaly. LUNGS: Good air entry. No rales, no rhonchi. CARDIOVASCULAR: S1, S2 regular. No murmur heard. ABDOMEN: Soft, non tender, bowel sounds present, no organomegaly. CENTRAL NERVOUS SYSTEM: Awake, alert, oriented x 3. SKIN: No rashes, no swelling. LYMPHATICS: No peripheral lymphadenopathy. MUSCULOSKELETAL: No joint swelling, erythema or tenderness. EXTREMITIES: No cyanosis or clubbing. BACK: No deformity, no pressure ulcer. GENITOURINARY: No dysuria or hematuria. Vital Sign (Last 12 Hours) 09/09/24 09/09/24 09/09/24 09/09/24 12:00 12:10 14:47 14:52 Temp 97.9 98.2 97.5 Pulse 92 96 93 96 Resp 03 18 18 19 B/P (MAP) 160/98 133/86 145/98 148/92 Pulse Ox 95 96 96 94 O2 Delivery Room Air Room Air Nonrebreathing Mask Nasal Cannula O2 Flow Rate 10.0 3.0 09/09/24 09/09/24 09/09/24 09/09/24 14:57 15:02 15:07 15:12 Pulse 97 98 97 85 Resp 18 18 17 B/P (MAP) 151/93 147/88 147/95 151/93 Pulse Ox 94 94 94 93 O2 Delivery Nasal Cannula Nasal Cannula Nasal Cannula Nasal Cannula O2 Flow Rate 3.0 3.0 3.0 3.0 09/09/24 09/09/24 09/09/24 09/09/24 15:17 15:22 15:27 15:32 Pulse 83 82 87 85 Resp 16 16 17 16 B/P (MAP) 156/94 154/95 154/96 153/92 Pulse Ox 95 94 94 93 O2 Delivery Nasal Cannula Nasal Cannula Nasal Cannula Nasal Cannula O2 Flow Rate 3.0 3.0 3.0 3.0 09/09/24 09/09/24 09/09/24 09/09/24 15:37 15:40 15:55 16:00 Temp 97.7 97.9 97.5 97.9 Pulse 87 97 91 74 Resp 17 20 20 20 B/P (MAP) 149/88 143/91 141/88 149/88 Pulse Ox 94 98 98 93 O2 Delivery Nasal Cannula Room Air Room Air Room Air O2 Flow Rate 3.0 09/09/24 09/09/24 09/09/24 09/09/24 16:10 16:25 17:55 18:25 Temp 97.5 97.5 97.7 Pulse 92 97 90 91 Resp 20 20 20 B/P (MAP) 132/77 132/77 156/99 141/88 Pulse Ox 95 98 90 98 O2 Delivery Room Air Room Air Room Air Room Air 09/09/24 19:25 Temp 98.6 Pulse 90 Resp 20 B/P (MAP) 132/77 Pulse Ox 96 O2 Delivery Room Air Intake & Output (last 24hrs) 09/08/24 09/08/24 09/09/24 15:00 23:00 07:00 Intake Total 300 ml Output Total 200 ml Balance -200 ml 300 ml LABS: Laboratory: Test 09/09/24 15:22 09/09/24 05:53 09/08/24 13:12 09/08/24 06:36 Range/Units Whole Blood Glucose 119 H 70-110 MG/DL White Blood Count 4.4 L 4.8-10.8 K/uL Red Blood Count 4.18 L 4.50-6.20 MIL/uL Hemoglobin 11.3 L 14.0-18.0 g/dL Hematocrit 37.1 L 42-54 % Mean Corpuscular Volume 88.8 79-99 fL Mean Corpuscular Hemoglobin 27.0 27.0-33.0 pg Mean Corpuscular Hemoglobin Concent 30.5 L 32.0-36.0 g/dL Red Cell Distribution Width 15.7 H 11.0-15.5 % Platelet Count 234 130-400 K/uL Mean Platelet Volume 9.1 7.5-10.5 fL Immature Granulocyte % (Auto) 0.5 0-1 % Neutrophils (%) (Auto) 72.3 40.0-77.0 % Lymphocytes (%) (Auto) 11.3 L 21.0-51.0 % Monocytes (%) (Auto) 11.3 3.0-13.0 % Eosinophils (%) (Auto) 4.1 0.0-8.0 % Basophils (%) (Auto) 0.5 0.0-5.0 % Neutrophils # (Auto) 3.2 1.8-7.7 K/uL Lymphocytes # (Auto) 0.5 L 1.0-4.8 K/uL Monocytes # (Auto) 0.5 0.1-1.0 K/uL Eosinophils # (Auto) 0.18 0.00-0.70 K/uL Basophils # (Auto) 0.02 0.00-0.20 K/uL Absolute Immature Granulocyte (auto 0.02 0-1 K/uL Nucleated Red Blood Cells 0.0 0.0-0.19 % Sodium Level 139 136-145 mmol/L Potassium Level 3.8 3.5-5.1 mmol/L Chloride Level 104 101-111 mmol/L Carbon Dioxide Level 27 21-32 mmol/L Blood Urea Nitrogen 12 7-18 mg/dL Creatinine 0.7 0.5-1.3 mg/dL Glomerular Filtration Rate Calc 113 >90 mL/min Random Glucose 109 H 70-105 mg/dL Total Calcium 8.9 8.5-10.1 mg/dL Prothrombin Time 11.4 9.6-11.6 SEC Prothromb Time International Ratio 1.08 0.85-1.15 Magnesium Level 1.70 L 1.80-2.40 mg/dL ASSESSMENT: Right lower extremity abscess. Right leg ulcer. Right thigh wound. Generalized pustulosis. Cellulitis to the lower extremity. Diabetes mellitus. Peripheral vascular disease. Morbid obesity. Recent right iliofemoral venogram/IVUS. May-Thurner syndrome. PLAN: Continue cefepime. Continue vancomycin. Continue metronidazole. Continue wound care. Continue pain management. We will follow up on the cultures results. We will monitor electrolytes. This case was reviewed and discussed with my supervising physician and the above assessment and plan was formulated and agreed upon. ATTESTATION BY PHYSICIAN I have seen and examined the patient. I reviewed the documentation, medical decision making, and treatment plan as noted by the mid-level provider above. I agree with the findings and plan of care. CHATO BRIAN MD, MIRTA L [facility] Sep 09, 2024 23:15
[2024-09-10 03:44] VITALS: BP 150/88; PULSE 76; RESP 20; TEMP 98
[2024-09-10] MEDS: HYDROcodone/APAP 5/325 1 TAB TABLET PO PRN (05:35)
[2024-09-10 06:38] LABS: HEMATOCRIT 37.2 % (42-54); IMMATURE GRANULOCYTE ABSOLUTE 0.02 K/uL (0-1); LYMPHOCYTES # (AUTO) 0.4 K/uL (1.0-4.8); LYMPHOCYTES % (AUTO) 7.1 % (21.0-51.0); MEAN CORPUSCULAR HEMOGLOBIN 26.8 pg (27.0-33.0); MEAN CORPUSCULAR HGB CONC 29.6 g/dL (32.0-36.0); MEAN CORPUSCULAR VOLUME 90.7 fL (79-99); MONOCYTES # (AUTO) 0.3 K/uL (0.1-1.0); MONOCYTES % (AUTO) 5.3 % (3.0-13.0); NEUTROPHILS # (AUTO) 4.8 K/uL (1.8-7.7); NEUTROPHILS % (AUTO) 87.2 % (40.0-77.0); PLATELET COUNT (AUTO) 261 K/uL (130-400); RED CELL DISTRIBUTION WIDTH 15.3 % (11.0-15.5); WHITE BLOOD COUNT (AUTO) 5.5 K/uL (4.8-10.8)
[2024-09-10 06:57] LABS: CREATININE 0.8 mg/dL (0.5-1.3); POTASSIUM 4.5 mmol/L (3.5-5.1)
[2024-09-10 08:00] VITALS: BP 154/89; PULSE 86; RESP 18; TEMP 98.1
[2024-09-10 12:00] VITALS: BP 137/80; PULSE 97; RESP 18; TEMP 98.1
--- NOTE | 2024-09-10 15:32 | PN ---
Patient had his dressing changed all seven wounds earlier this morning. I saw images of him and they look pretty good I do not see any significant exudate or drainage. There is no active bleeding. Based on these images. ID is waiting for the cultures to come back before making a decision about oral versus IV antibiotics He has a follow up appointment with Dr. Jett at the [facility] on Friday. At this time I will sign off. He can do his postoperative wound care follow up with Dr. Jett at the [facility]. he does not have to see me postoperatively. Vitals/Labs Vital Signs Date Time Temp Pulse Resp B/P (MAP) Pulse Ox O2 Delivery O2 Flow Rate FiO2 09/10/24 12:00 98.1 97 18 137/80 93 Room Air 09/10/24 08:00 0 21 Laboratory Tests 09/10/24 06:33 Medications Current Medications Enoxaparin Sodium 40 mg DAILY SQ Last administered on 09/08/24at 10:37; Start 09/07/24 at 21:00; Stop 09/10/24 at 06:24; Status DC Acetaminophen 650 mg Q6H PRN PO; Start 09/07/24 at 10:30; Stop 10/07/24 at 10:29 Acetaminophen/ Hydrocodone Bitart 1 tab Q6H PRN PO Last administered on 09/10/24at 05:35; Start 09/07/24 at 10:30; Stop 09/12/24 at 10:29 Lactulose 20 gm Q6H PRN PO; Start 09/07/24 at 10:30; Stop 10/07/24 at 10:29 Ondansetron HCl 4 mg Q6H PRN IVP Last administered on 09/09/24at 15:47; Start 09/07/24 at 10:30; Stop 10/07/24 at 10:29 Hydralazine HCl 10 mg Q6H PRN IV; Start 09/07/24 at 10:30; Stop 10/07/24 at 10:29 Morphine Sulfate 2 mg Q4H PRN IVP; Start 09/07/24 at 10:30; Stop 09/14/24 at 10:29 Cefepime HCl 2 gm Q8H IVPB Last administered on 09/10/24at 08:54; Start 09/07/24 at 10:30; Stop 09/17/24 at 10:29 Vancomycin HCl 1.25 gm ONCE ONCE IV; Start 09/07/24 at 10:30; Stop 09/07/24 at 10:55; Status DC Pharmacy Profile Note 1 each ONCE MISC; Start 09/07/24 at 10:30; Stop 09/07/24 at 10:54; Status DC Metronidazole/ Sodium Chloride 500 mg Q8H IV Last administered on 09/10/24at 10:32; Start 09/07/24 at 10:30; Stop 09/17/24 at 10:29 Insulin Human Regular INSULIN SLIDING SCAL... ACHS SQ; Start 09/07/24 at 11:30; Stop 10/07/24 at 11:29 Dextrose 50 ml AD PRN IV; Start 09/07/24 at 11:00; Stop 10/07/24 at 10:59 Glucagon 1 mg AD PRN IM; Start 09/07/24 at 11:00; Stop 10/07/24 at 10:59 Potassium Chloride 100 ml @ 100 mls/hr AD PRN IV; Start 09/07/24 at 11:00; Stop 10/07/24 at 10:59 Potassium Chloride 20 meq AD PRN PO; Start 09/07/24 at 11:00; Stop 10/07/24 at 10:59 Potassium Chloride 20 meq AD PRN PO; Start 09/07/24 at 11:00; Stop 10/07/24 at 10:59 Magnesium Sulfate 50 ml @ 0 mls/hr PROTOCOL PRN IV Last administered on 09/08/24at 21:30; Start 09/07/24 at 11:00; Stop 10/07/24 at 10:59 Vancomycin HCl 1 each AD IV; Start 09/07/24 at 11:30; Stop 09/21/24 at 11:29 Vancomycin HCl 500 ml @ 250 mls/hr ONCE ONCE IV Last administered on 09/07/24at 12:29; Start 09/07/24 at 12:00; Stop 09/07/24 at 13:59; Status DC Vancomycin HCl 250 ml @ 125 mls/hr Q24H IV Last administered on 09/09/24at 15:46; Start 09/08/24 at 12:00; Stop 09/10/24 at 06:27; Status DC Sodium Hypochlorite 0.25%-HALF STRENGTH Apply... DAILY TP Last administered on 09/10/24at 10:32; Start 09/08/24 at 09:00; Stop 10/08/24 at 08:59 Leptospermum Honey 1 appl DAILY TP Last administered on 09/08/24at 10:37; Start 09/08/24 at 09:00; Stop 09/09/24 at 15:13; Status DC Acetaminophen 100 ml @ As Directed STK-MED ONCE .ROUTE; Start 09/09/24 at 12:03; Stop 09/09/24 at 12:04; Status DC Famotidine 20 mg STK-MED ONCE IV; Start 09/09/24 at 12:03; Stop 09/09/24 at 12:04; Status DC Propofol 200 mg STK-MED ONCE IV; Start 09/09/24 at 12:08; Stop 09/09/24 at 12:08; Status DC Rocuronium [place] 50 mg STK-MED ONCE .ROUTE; Start 09/09/24 at 12:08; Stop 09/09/24 at 12:08; Status DC Fentanyl Citrate 100 mcg STK-MED ONCE .ROUTE; Start 09/09/24 at 12:08; Stop 09/09/24 at 12:08; Status DC Ketamine HCl 50 mg STK-MED ONCE .ROUTE; Start 09/09/24 at 12:33; Stop 09/09/24 at 12:34; Status DC Glycopyrrolate 1 mg STK-MED ONCE .ROUTE; Start 09/09/24 at 12:35; Stop 09/09/24 at 12:36; Status DC Dexamethasone Sodium Phosphate 10 mg STK-MED ONCE .ROUTE; Start 09/09/24 at 12:44; Stop 09/09/24 at 12:44; Status DC Ondansetron HCl 4 mg STK-MED ONCE .ROUTE; Start 09/09/24 at 12:44; Stop 09/09/24 at 12:44; Status DC Rocuronium [place] 50 mg STK-MED ONCE .ROUTE; Start 09/09/24 at 13:52; Stop 09/09/24 at 13:52; Status DC Neostigmine Methylsulfate 10 mg STK-MED ONCE IV; Start 09/09/24 at 14:36; Stop 09/09/24 at 14:36; Status DC Fentanyl Citrate 100 mcg STK-MED ONCE .ROUTE Last administered on 09/09/24at 15:08; Start 09/09/24 at 15:03; Stop 09/09/24 at 15:03; Status DC Vancomycin HCl 250 ml @ 125 mls/hr Q24H IV; Start 09/10/24 at 16:00; Stop 09/20/24 at 15:59 RAINER SHARIF MD Sep 10, 2024 15:32
[2024-09-10 16:00] VITALS: BP 145/90; PULSE 82; RESP 18; TEMP 98.7
[2024-09-10] MEDS ORDERED: VANCOMYCIN 1.75 GM/250 ML BAG 250 ML IV SCH (16:00)
--- NOTE | 2024-09-10 18:46 | PN ---
[facility] PROGRESS NOTE Date Patient Seen: Sep 10, 2024 Time of Visit: 19:42 Supervising Physician: [Dr. Martines] Primary Care Physician: Dr. Christina Schneider Outpatient Specialists: Wound care Inpatient Consults: Wound care, ID and Gen surgery PROBLEM LIST: Right leg gangrenous wound. 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 Hx of left inguinal surgical wound complications status post foreign body removal in the left common femoral artery and vein by Dr. Park on 05/04/24 with Wound Vac Hx left inguinal soft tissue hematoma 7 x [address] scan on 05/20/2024 Plan: Continue IV abx per ID, pending cultures obtained from surgery GI and DVT ppx Abx per ID for disposition INTERVAL HISTORY: [Patient is evaluated at bedside. Continues with wound care per wound care recommendation. No osteomyelitis per CT lower extremity. Labs WNL. He is pending I&D per General surgery on . We will continue IV antibiotics in the meantime. Pending wound culture results. Venous doppler negative for DVT. Pain is well controlled.] 09/09 Patient is evaluated at bedside. Pending I&D today with general surgery with possible wound vac. Patient may be a candidate for Solara. Will follow up with post surgery recommendations and need for IV abx per ID. Labs and vitals are unremarkable. No wound culture results. 09/10 Patient is evaluated at bedside. He is status post I and D yesterday with General surgery. Does not have wound VAC in place continues with IV antibiotics per ID. His labs remain unremarkable without leukocytosis. Pending cultures obtained from I&D. REVIEW OF SYSTEMS: 12 point ROS reviewed with patient. Pertinent positives mentioned above. Otherwise negative. PHYSICAL EXAM: GENERAL: Alert, weak, awake oriented x 3. Severely obese HEENT: EOMI, Sclera non icteric, moist mucosa NECK: Supple, no JVD, trachea midline LUNGS: Clear breath sounds bilaterally. No wheezes HEART: Regular rate and rhythm. Normal S1 and S2, without murmurs ABD: Abdomen soft, nontender. Bowel sounds present EXT: No clubbing cyanosis or edema. RLE necrotic wound with purulent drainage NEURO: Alert and oriented to person, follows commands Vital Signs (last 8hr) Date Time Temp Pulse Resp B/P (MAP) Pulse Ox O2 Delivery O2 Flow Rate FiO2 09/10/24 16:00 98.8 82 18 145/90 94 Room Air 09/10/24 12:00 98.1 97 18 137/80 93 Room Air LABS: Hematology Labs: Test 09/10/24 06:33 Range/Units White Blood Count 5.5 4.8-10.8 K/uL Red Blood Count 4.10 L 4.50-6.20 MIL/uL Hemoglobin 11.0 L 14.0-18.0 g/dL Hematocrit 37.2 L 42-54 % Mean Corpuscular Volume 90.7 79-99 fL Mean Corpuscular Hemoglobin 26.8 L 27.0-33.0 pg Mean Corpuscular Hemoglobin Concent 29.6 L 32.0-36.0 g/dL Red Cell Distribution Width 15.3 11.0-15.5 % Platelet Count 261 130-400 K/uL Mean Platelet Volume 9.3 7.5-10.5 fL Immature Granulocyte % (Auto) 0.4 0-1 % Neutrophils (%) (Auto) 87.2 H 40.0-77.0 % Lymphocytes (%) (Auto) 7.1 L 21.0-51.0 % Monocytes (%) (Auto) 5.3 3.0-13.0 % Eosinophils (%) (Auto) 0.0 0.0-8.0 % Basophils (%) (Auto) 0.0 0.0-5.0 % Neutrophils # (Auto) 4.8 1.8-7.7 K/uL Lymphocytes # (Auto) 0.4 L 1.0-4.8 K/uL Monocytes # (Auto) 0.3 0.1-1.0 K/uL Eosinophils # (Auto) 0.00 0.00-0.70 K/uL Basophils # (Auto) 0.00 0.00-0.20 K/uL Absolute Immature Granulocyte (auto 0.02 0-1 K/uL Nucleated Red Blood Cells 0.0 0.0-0.19 % White Cell Morphology Comment See comments Chemistry Labs: Test 09/10/24 06:33 09/09/24 15:22 Range/Units Sodium Level 141 136-145 mmol/L Potassium Level 4.5 3.5-5.1 mmol/L Chloride Level 106 101-111 mmol/L Carbon Dioxide Level 29 21-32 mmol/L Blood Urea Nitrogen 12 7-18 mg/dL Creatinine 0.8 0.5-1.3 mg/dL Glomerular Filtration Rate Calc 108 >90 mL/min Random Glucose 152 H 70-105 mg/dL Total Calcium 9.0 8.5-10.1 mg/dL Whole Blood Glucose 119 H 70-110 MG/DL DIAGNOSTICS / RADIOLOGY RESULTS: [ ] PLAN Diet: Heart healthy HTN: Hydralazine for systolic BP greater than 160. DM: Insulin sliding scale as ordered. DVT prophylaxis: Lovenox . GI prophylaxis: Protonix. Antiemetic: Zofran. Constipation: Lactulose. Pain: Tylenol /[place]/morphine for pain management and will adjust management as necessary. NEURO: Minimize central acting medications as possible. Maintain fall precautions, adequate lighting during the day PULMONARY: Supplemental 02 as needed. Maintain aspiration precautions at all times CARDIOVASCULAR: Follow hemodynamics. Vital signs per facility protocol GI & NUTRITION: Continue with nutritional support. Continue stool softeners and laxatives as needed. KIDNEYS & ELECTROLYTES: Strict monitoring of intake, output and overall fluid balance. Avoid nephrotoxic medications to the extent possible. Medications to be dosed according to renal function. Monitor electrolytes and replace as needed ENDOCRINE: Maintain blood glucose between 100-180 at all times. Hypoglycemia protocol in place INFECTIOUS DISEASE: Trend temperature, WBC and procalcitonin level Follow cultures, deescalate antibiotics as soon as possible. Panculture if new onset fever ONCOLOGY/HEMATOLOGY/COAGULATION: Monitor for s/s of bleeding Monitor hemoglobin, coagulation studies as needed SKIN: Pressure ulcer prevention per facility protocol Specialty mattress ORTHO/REHAB: Continue PT/OT Prophylaxis: Continue GI and DVT prophylaxis Code Status: Full Resuscitation Disposition: TBD Other: Total patient care time exceeds 35 minutes excluding all procedures. MANJINDER REDMOND Sep 10, 2024 18:46
--- NOTE | 2024-09-10 19:00 | NUR ---
CM NOTE/HCU REFERRAL CM spoke to patient regarding d/c planning. States he has spoken to Dr Roman regarding plan of care and has not confirmed if terminal carman IV abx are required. CM f/u with primary nurse, states [facility] is waiting for final cx report. Patient notified CM that he does not want to return to [facility]. States he had a bad experience at facility. He prefers to return home with home health. States spouse can also assist in wound care since dressing changes are scheduled BID. CM obtained [facility] for any in network home health agency. Referral faxed to [facility]. Patient also reports he is agreeable to returning to Dr[facility] Roman clinic if needing terminal carman IV abx. States he has been there in the past. CM obtained [facility] for [facility]. CM to f/u. Addendum: 09/10/24 at 1904 by H[place] CM Amended: Links added.
[2024-09-10 19:50] VITALS: BP 141/95; PULSE 95; RESP 19; TEMP 98.6
[2024-09-10] MEDS: ceFEPime HCL 2 GM VIAL IVPB SCH (20:12)
[2024-09-10] MEDS: metRONIDazole 500MG/100ML BAG IV SCH (21:52)
[2024-09-10] MEDS: VANCOMYCIN 1.75 GM/250 ML BAG 250 ML IV SCH (23:24)
[2024-09-10 23:50] VITALS: O2SAT 96
[2024-09-11] VITALS (8 sets, daily range): BP systolic 123–155; BP diastolic 72–95; PULSE 77–85; RESP 18–19; TEMP 97.4–98.7; O2SAT 95–96
--- NOTE | 2024-09-11 03:15 | PN ---
INFECTIOUS DISEASE FOLLOWUP NOTE DATE OF SERVICE: 09/10/2024 SUBJECTIVE: The patient is seen. No fever, no chills, no nausea or vomiting. No bleeding tendency. Underwent surgery for right leg ulcer and abscesses. No dysuria or hematuria. No rashes or skin lesion. Tolerating antibiotics. PHYSICAL EXAMINATION: VITAL SIGNS: Temperature 96.9. EYES: No icterus. Pupils equal and reactive. HEENT: No oral thrush seen. Moist oral mucosa. NECK: Supple. No JVD, no thyromegaly. LUNGS: Good air entry. No rales, no rhonchi. CARDIOVASCULAR: S1, S2 regular. No murmur heard. ABDOMEN: Full, soft, nontender, morbidly obese. No organomegaly. CENTRAL NERVOUS SYSTEM: Awake, alert, oriented x 3. No focal deficits. SKIN: The patient has multiple areas pustules. LYMPHATIC: There is no peripheral lymphadenopathy. BACK: No deformity, no pressure ulcer. EXTREMITIES: Ulcer involving the right leg also involving the right thigh. ASSESSMENT: A 48-year-old male with multiple problems including, * Right leg ulcer, necrosis. * Right lower extremity cellulitis. * Right lower leg abscess, status post drainage. * Abdominal wall cellulitis. * Morbid obesity. * Diabetes mellitus. * Obstructive sleep apnea. PLAN: * Continue wound care. * Follow up culture. * Continue pain management. * Continue nutritional support. * Monitor electrolytes. * Continue GI and DVT prophylaxis. * The patient will be followed up closely. TID: [id number] RECEIPT: [id number] [facility]
[2024-09-11] MEDS: HYDROcodone/APAP 5/325 1 TAB TABLET PO PRN (03:56)
--- NOTE | 2024-09-11 12:00 | PN ---
[facility] PROGRESS NOTE Date Patient Seen: Sep 11, 2024 Time of Visit: 11:57 Supervising Physician: [Dr. Bales] Primary Care Physician: Dr. Christina Schneider Outpatient Specialists: Wound care Inpatient Consults: Wound care, ID and Gen surgery PROBLEM LIST: Right leg gangrenous wound. 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 Hx of left inguinal surgical wound complications status post foreign body removal in the left common femoral artery and vein by Dr. Park on 05/04/24 with Wound Vac Hx left inguinal soft tissue hematoma 7 x [address] scan on 05/20/2024 Plan: Continue IV abx per ID, pending cultures obtained from surgery GI and DVT ppx Abx per ID for disposition INTERVAL HISTORY: [Patient is evaluated at bedside. Continues with wound care per wound care recommendation. No osteomyelitis per CT lower extremity. Labs WNL. He is pending I&D per General surgery on . We will continue IV antibiotics in the meantime. Pending wound culture results. Venous doppler negative for DVT. Pain is well controlled.] 09/09 Patient is evaluated at bedside. Pending I&D today with general surgery with possible wound vac. Patient may be a candidate for Solara. Will follow up with post surgery recommendations and need for IV abx per ID. Labs and vitals are unremarkable. No wound culture results. 09/10 Patient is evaluated at bedside. He is status post I and D yesterday with General surgery. Does not have wound VAC in place continues with IV antibiotics per ID. His labs remain unremarkable without leukocytosis. Pending cultures obtained from I&D. 09/11 patient is evaluated at bedside. His vitals are within normal limits, no fever overnight. He continues his wound care. Continues with IV antibiotic for ID, pending culture for final recommendation for antibiotics upon discharge given history of multidrug resistant organism. REVIEW OF SYSTEMS: 12 point ROS reviewed with patient. Pertinent positives mentioned above. Otherwise negative. PHYSICAL EXAM: GENERAL: Alert, weak, awake oriented x 3. Severely obese HEENT: EOMI, Sclera non icteric, moist mucosa NECK: Supple, no JVD, trachea midline LUNGS: Clear breath sounds bilaterally. No wheezes HEART: Regular rate and rhythm. Normal S1 and S2, without murmurs ABD: Abdomen soft, nontender. Bowel sounds present EXT: No clubbing cyanosis or edema. RLE necrotic wound with purulent drainage NEURO: Alert and oriented to person, follows commands Vital Signs (last 8hr) Date Time Temp Pulse Resp B/P (MAP) Pulse Ox O2 Delivery O2 Flow Rate FiO2 09/11/24 11:39 97.9 80 18 141/92 99 Room Air 21 09/11/24 07:27 97.5 77 19 155/87 95 Room Air 21 09/11/24 04:07 97.3 79 19 140/87 97 Room Air LABS: Hematology Labs: Test 09/10/24 06:33 Range/Units White Blood Count 5.5 4.8-10.8 K/uL Red Blood Count 4.10 L 4.50-6.20 MIL/uL Hemoglobin 11.0 L 14.0-18.0 g/dL Hematocrit 37.2 L 42-54 % Mean Corpuscular Volume 90.7 79-99 fL Mean Corpuscular Hemoglobin 26.8 L 27.0-33.0 pg Mean Corpuscular Hemoglobin Concent 29.6 L 32.0-36.0 g/dL Red Cell Distribution Width 15.3 11.0-15.5 % Platelet Count 261 130-400 K/uL Mean Platelet Volume 9.3 7.5-10.5 fL Immature Granulocyte % (Auto) 0.4 0-1 % Neutrophils (%) (Auto) 87.2 H 40.0-77.0 % Lymphocytes (%) (Auto) 7.1 L 21.0-51.0 % Monocytes (%) (Auto) 5.3 3.0-13.0 % Eosinophils (%) (Auto) 0.0 0.0-8.0 % Basophils (%) (Auto) 0.0 0.0-5.0 % Neutrophils # (Auto) 4.8 1.8-7.7 K/uL Lymphocytes # (Auto) 0.4 L 1.0-4.8 K/uL Monocytes # (Auto) 0.3 0.1-1.0 K/uL Eosinophils # (Auto) 0.00 0.00-0.70 K/uL Basophils # (Auto) 0.00 0.00-0.20 K/uL Absolute Immature Granulocyte (auto 0.02 0-1 K/uL Nucleated Red Blood Cells 0.0 0.0-0.19 % White Cell Morphology Comment See comments Chemistry Labs: Test 09/10/24 06:33 09/09/24 15:22 Range/Units Sodium Level 141 136-145 mmol/L Potassium Level 4.5 3.5-5.1 mmol/L Chloride Level 106 101-111 mmol/L Carbon Dioxide Level 29 21-32 mmol/L Blood Urea Nitrogen 12 7-18 mg/dL Creatinine 0.8 0.5-1.3 mg/dL Glomerular Filtration Rate Calc 108 >90 mL/min Random Glucose 152 H 70-105 mg/dL Total Calcium 9.0 8.5-10.1 mg/dL Whole Blood Glucose 119 H 70-110 MG/DL DIAGNOSTICS / RADIOLOGY RESULTS: [ ] PLAN Diet: Heart healthy HTN: Hydralazine for systolic BP greater than 160. DM: Insulin sliding scale as ordered. DVT prophylaxis: Lovenox . GI prophylaxis: Protonix. Antiemetic: Zofran. Constipation: Lactulose. Pain: Tylenol /[place]/morphine for pain management and will adjust management as necessary. NEURO: Minimize central acting medications as possible. Maintain fall precautions, adequate lighting during the day PULMONARY: Supplemental 02 as needed. Maintain aspiration precautions at all times CARDIOVASCULAR: Follow hemodynamics. Vital signs per facility protocol GI & NUTRITION: Continue with nutritional support. Continue stool softeners and laxatives as needed. KIDNEYS & ELECTROLYTES: Strict monitoring of intake, output and overall fluid balance. Avoid nephrotoxic medications to the extent possible. Medications to be dosed according to renal function. Monitor electrolytes and replace as needed ENDOCRINE: Maintain blood glucose between 100-180 at all times. Hypoglycemia protocol in place INFECTIOUS DISEASE: Trend temperature, WBC and procalcitonin level Follow cultures, deescalate antibiotics as soon as possible. Panculture if new onset fever ONCOLOGY/HEMATOLOGY/COAGULATION: Monitor for s/s of bleeding Monitor hemoglobin, coagulation studies as needed SKIN: Pressure ulcer prevention per facility protocol Specialty mattress ORTHO/REHAB: Continue PT/OT Prophylaxis: Continue GI and DVT prophylaxis Code Status: Full Resuscitation Disposition: TBD Other: Total patient care time exceeds 35 minutes excluding all procedures. MANJINDER REDMOND Sep 11, 2024 12:00
--- NOTE | 2024-09-11 19:21 | NUR ---
WOUND CARE PROVIDED PER MD ORDER WITH DAKIN SOLUTION WET TO DRY ON WOUNDS ,PATIENT TOLERATED WELL .. WOUND BEDS REMAIN RED AND MOIST .
[2024-09-12] VITALS (7 sets, daily range): BP systolic 127–151; BP diastolic 79–93; PULSE 73–96; RESP 18–19; TEMP 97.4–97.9; O2SAT 97
--- NOTE | 2024-09-12 14:16 | PN ---
[facility] PROGRESS NOTE Date Patient Seen: Sep 12, 2024 Time of Visit: 14:15 Supervising Physician: Dr. Kem Bales Primary Care Physician: Dr. Christina Schneider Outpatient Specialists: Wound care Inpatient Consults: Wound care, ID and Gen surgery PROBLEM LIST: Right leg gangrenous wound. 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 Hx of left inguinal surgical wound complications status post foreign body removal in the left common femoral artery and vein by Dr. Park on 05/04/24 with Wound Vac Hx left inguinal soft tissue hematoma 7 x [address] scan on 05/20/2024 Plan: Continue IV abx per ID, pending cultures obtained from surgery GI and DVT ppx Abx per ID for disposition INTERVAL HISTORY: [Patient is evaluated at bedside. Continues with wound care per wound care recommendation. No osteomyelitis per CT lower extremity. Labs WNL. He is pending I&D per General surgery on . We will continue IV antibiotics in the meantime. Pending wound culture results. Venous doppler negative for DVT. Pain is well controlled.] 09/09 Patient is evaluated at bedside. Pending I&D today with general surgery with possible wound vac. Patient may be a candidate for Solara. Will follow up with post surgery recommendations and need for IV abx per ID. Labs and vitals are unremarkable. No wound culture results. 09/10 Patient is evaluated at bedside. He is status post I and D yesterday with General surgery. Does not have wound VAC in place continues with IV antibiotics per ID. His labs remain unremarkable without leukocytosis. Pending cultures obtained from I&D. 09/11 patient is evaluated at bedside. His vitals are within normal limits, no fever overnight. He continues his wound care. Continues with IV antibiotic for ID, pending culture for final recommendation for antibiotics upon discharge given history of multidrug resistant organism. 09/12 patient evaluated at bedside, denies any acute pain at this time. Patient's wounds are all bandaged, followed by wound care. He continues on cefepime vanco and Flagyl at this time, pending authorization for home wound care as well as [facility] free clinic. Patient under the impression that he will not be receiving IV antibiotics once he is discharged and that he will be sent home with oral medication. Pending confirmation of patient's disposition with case management tomorrow. Cultures pending. White count 5.5, patient denies any nausea vomiting, appetite is good. Vitals within normal limits. REVIEW OF SYSTEMS: 12 point ROS reviewed with patient. Pertinent positives mentioned above. O therwise negative. PHYSICAL EXAM: GENERAL: Alert, weak, awake oriented x 3. Severely obese HEENT: EOMI, Sclera non icteric, moist mucosa NECK: Supple, no JVD, trachea midline LUNGS: Clear breath sounds bilaterally. No wheezes HEART: Regular rate and rhythm. Normal S1 and S2, without murmurs ABD: Abdomen soft, nontender. Bowel sounds present EXT: No clubbing cyanosis or edema. RLE necrotic wound with purulent drainage NEURO: Alert and oriented to person, follows commands Vital Signs (last 8hr) Date Time Temp Pulse Resp B/P (MAP) Pulse Ox O2 Delivery O2 Flow Rate FiO2 09/12/24 11:21 97.7 82 19 150/84 96 Room Air 21 09/12/24 11:19 97.7 73 18 150/84 97 Room Air 21 09/12/24 07:51 97.3 77 19 144/83 95 Room Air 21 LABS: DIAGNOSTICS / RADIOLOGY RESULTS: [ ] PLAN Diet: Heart healthy HTN: Hydralazine for systolic BP greater than 160. DM: Insulin sliding scale as ordered. DVT prophylaxis: Lovenox . GI prophylaxis: Protonix. Antiemetic: Zofran. Constipation: Lactulose. Pain: Tylenol /[place]/morphine for pain management and will adjust management as necessary. NEURO: Minimize central acting medications as possible. Maintain fall precautions, adequate lighting during the day PULMONARY: Supplemental 02 as needed. Maintain aspiration precautions at all times CARDIOVASCULAR: Follow hemodynamics. Vital signs per facility protocol GI & NUTRITION: Continue with nutritional support. Continue stool softeners and laxatives as needed. KIDNEYS & ELECTROLYTES: Strict monitoring of intake, output and overall fluid balance. Avoid nephrotoxic medications to the extent possible. Medications to be dosed according to renal function. Monitor electrolytes and replace as needed ENDOCRINE: Maintain blood glucose between 100-180 at all times. Hypoglycemia protocol in place INFECTIOUS DISEASE: Trend temperature, WBC and procalcitonin level Follow cultures, deescalate antibiotics as soon as possible. Panculture if new onset fever ONCOLOGY/HEMATOLOGY/COAGULATION: Monitor for s/s of bleeding Monitor hemoglobin, coagulation studies as needed SKIN: Pressure ulcer prevention per facility protocol Specialty mattress ORTHO/REHAB: Continue PT/OT Prophylaxis: Continue GI and DVT prophylaxis Code Status: Full Resuscitation Disposition: TBD Other: Total patient care time exceeds 35 minutes excluding all procedures. SHANIA ARCINIEGA Sep 12, 2024 14:16
--- NOTE | 2024-09-12 18:57 | PN ---
INFECTIOUS DISEASE FOLLOWUP NOTE DATE OF SERVICE: 09/11/2024. SUBJECTIVE: The patient is seen and examined at bedside. No fever or chills. No bleeding tendencies. No sore throat. No rhinorrhea. Pain to the lower extremity is well controlled. antibiotics tolerating. No depression. No suicidal ideation. No heat or cold intolerance. PHYSICAL EXAMINATION: VITAL SIGNS: Temperature 97.4. EYES: No icterus. Pupils are equal and reactive. HENT: No oral lesions seen. Moist oral mucosa. NECK: Supple. No JVD or thyromegaly. LUNGS: Good air entry. No rales. No rhonchi. CARDIOVASCULAR: S1, S2 regular. No murmur heard. ABDOMEN: Full, soft, nontender. Bowel sounds are present. CENTRAL NERVOUS SYSTEM: Awake, alert, oriented x 3. No focal deficits. SKIN: No rashes. No itchiness. LYMPHATIC: . HEMATOLOGIC: No bleeding or petechial lesions seen. EXTREMITIES: There is a wound involving the right leg and right thigh . ASSESSMENT: A 49-year-old male with multiple problems which include: * Right leg necrotic ulcer, status post debridement. * Right leg abscess, status post incision and drainage. * Right thigh abscess. * Left cyst. * Morbid obesity. * Diabetes mellitus. * Obstructive sleep apnea. PLAN: * Continue wound care. * Continue vancomycin. * Continue cefepime. * Continue pain management. * Continue antidiabetic. * Continue nutritional support. * Monitor electrolytes. TID: [id number] RECEIPT: [id number]
[2024-09-13] VITALS (8 sets, daily range): BP systolic 116–160; BP diastolic 55–86; PULSE 78–102; RESP 19–20; TEMP 98.1–98.7; O2SAT 95
[2024-09-13 05:35] LABS: HEMATOCRIT 35.9 % (42-54); MEAN CORPUSCULAR HEMOGLOBIN 27.4 pg (27.0-33.0); MEAN CORPUSCULAR HGB CONC 30.1 g/dL (32.0-36.0); MEAN CORPUSCULAR VOLUME 91.1 fL (79-99); RED BLOOD CELL COUNT(AUTO) 3.94 MIL/uL (4.50-6.20); RED CELL DISTRIBUTION WIDTH 16.5 % (11.0-15.5)
[2024-09-13 05:47] LABS: CREATININE 0.7 mg/dL (0.5-1.3)
--- NOTE | 2024-09-13 11:30 | NUR ---
INSULIN REFUSAL PATIENT REFUSES GLUCOSE CHECKS. FORM IN PATIENT CHART.
--- NOTE | 2024-09-13 12:09 | PN ---
[facility] PROGRESS NOTE Date Patient Seen: Sep 13, 2024 Time of Visit: 12:03 Supervising Physician: Dr. Moises Lang Primary Care Physician: Dr. Christina Schneider Outpatient Specialists: Wound care Inpatient Consults: Wound care, ID and Gen surgery PROBLEM LIST: Right leg gangrenous wound. 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 Hx of left inguinal surgical wound complications status post foreign body removal in the left common femoral artery and vein by Dr. Park on 05/04/24 with Wound Vac Hx left inguinal soft tissue hematoma 7 x [address] scan on 05/20/2024 Plan: Continue IV abx per ID, pending cultures obtained from surgery GI and DVT ppx Abx per ID for disposition INTERVAL HISTORY: [Patient is evaluated at bedside. Continues with wound care per wound care recommendation. No osteomyelitis per CT lower extremity. Labs WNL. He is pending I&D per General surgery on . We will continue IV antibiotics in the meantime. Pending wound culture results. Venous doppler negative for DVT. Pain is well controlled.] 09/09 Patient is evaluated at bedside. Pending I&D today with general surgery with possible wound vac. Patient may be a candidate for Solara. Will follow up with post surgery recommendations and need for IV abx per ID. Labs and vitals are unremarkable. No wound culture results. 09/10 Patient is evaluated at bedside. He is status post I and D yesterday with General surgery. Does not have wound VAC in place continues with IV antibiotics per ID. His labs remain unremarkable without leukocytosis. Pending cultures obtained from I&D. 09/11 patient is evaluated at bedside. His vitals are within normal limits, no fever overnight. He continues his wound care. Continues with IV antibiotic for ID, pending culture for final recommendation for antibiotics upon discharge given history of multidrug resistant organism. 09/12 patient evaluated at bedside, denies any acute pain at this time. Patient's wounds are all bandaged, followed by wound care. He continues on cefepime vanco and Flagyl at this time, pending authorization for home wound care as well as [facility]. Patient under the impression that he will not be receiving IV antibiotics once he is discharged and that he will be sent home with oral medication. Pending confirmation of patient's disposition with case management tomorrow. Cultures pending. White count 5.5, patient denies any nausea vomiting, appetite is good. Vitals within normal limits. 09/13 patient evaluated at bedside today, discussion held regarding the patient's disposition in his desire to go home with wound care and oral antibiotics. Patient was advised that we are currently exploring options through his insurance, has been notified today that the patient's insurance actually comes to an end of the end of this month. Cultures have been ordered today as the patient's cultures previously taken were only for MRSA screening. He continues at this time on cefepime, vanco, Flagyl. White count today is 6.0. We will continue to monitor the patient's progress, wound care will be visiting the patient. No further changes to medical management pending updates from case management and insurance. REVIEW OF SYSTEMS: 12 point ROS reviewed with patient. Pertinent positives mentioned above. Otherwise negative. PHYSICAL EXAM: GENERAL: Alert, weak, awake oriented x 3. Severely obese HEENT: EOMI, Sclera non icteric, moist mucosa NECK: Supple, no JVD, trachea midline LUNGS: Clear breath sounds bilaterally. No wheezes HEART: Regular rate and rhythm. Normal S1 and S2, without murmurs ABD: Abdomen soft, nontender. Bowel sounds present EXT: No clubbing cyanosis or edema. RLE necrotic wound with purulent drainage NEURO: Alert and oriented to person, follows commands Vital Signs (last 8hr) Date Time Temp Pulse Resp B/P (MAP) Pulse Ox O2 Delivery O2 Flow Rate FiO2 09/13/24 07:45 98.1 87 20 130/72 95 Room Air 21 09/13/24 07:19 98.1 85 19 116/55 97 Room Air LABS: Hematology Labs: Test 09/13/24 05:14 Range/Units White Blood Count 6.0 4.8-10.8 K/uL Red Blood Count 3.94 L 4.50-6.20 MIL/uL Hemoglobin 10.8 L 14.0-18.0 g/dL Hematocrit 35.9 L 42-54 % Mean Corpuscular Volume 91.1 79-99 fL Mean Corpuscular Hemoglobin 27.4 27.0-33.0 pg Mean Corpuscular Hemoglobin Concent 30.1 L 32.0-36.0 g/dL Red Cell Distribution Width 16.5 H 11.0-15.5 % Platelet Count 232 130-400 K/uL Mean Platelet Volume 9.3 7.5-10.5 fL Nucleated Red Blood Cells 0.0 0.0-0.19 % Chemistry Labs: Test 09/13/24 05:14 Range/Units Sodium Level 139 136-145 mmol/L Potassium Level 4.0 3.5-5.1 mmol/L Chloride Level 103 101-111 mmol/L Carbon Dioxide Level 32 21-32 mmol/L Blood Urea Nitrogen 15 7-18 mg/dL Creatinine 0.7 0.5-1.3 mg/dL Glomerular Filtration Rate Calc 112 >90 mL/min Random Glucose 100 70-105 mg/dL Total Calcium 8.9 8.5-10.1 mg/dL DIAGNOSTICS / RADIOLOGY RESULTS: [ ] PLAN Diet: Heart healthy HTN: Hydralazine for systolic BP greater than 160. DM: Insulin sliding scale as ordered. DVT prophylaxis: Lovenox . GI prophylaxis: Protonix. Antiemetic: Zofran. Constipation: Lactulose. Pain: Tylenol /[place]/morphine for pain management and will adjust management as necessary. NEURO: Minimize central acting medications as possible. Maintain fall precautions, adequate lighting during the day PULMONARY: Supplemental 02 as needed. Maintain aspiration precautions at all times CARDIOVASCULAR: Follow hemodynamics. Vital signs per facility protocol GI & NUTRITION: Continue with nutritional support. Continue stool softeners and laxatives as needed. KIDNEYS & ELECTROLYTES: Strict monitoring of intake, output and overall fluid balance. Avoid nephrotoxic medications to the extent possible. Medications to be dosed according to renal function. Monitor electrolytes and replace as needed ENDOCRINE: Maintain blood glucose between 100-180 at all times. Hypoglycemia protocol in place INFECTIOUS DISEASE: Trend temperature, WBC and procalcitonin level Follow cultures, deescalate antibiotics as soon as possible. Panculture if new onset fever ONCOLOGY/HEMATOLOGY/COAGULATION: Monitor for s/s of bleeding Monitor hemoglobin, coagulation studies as needed SKIN: Pressure ulcer prevention per facility protocol Specialty mattress ORTHO/REHAB: Continue PT/OT Prophylaxis: Continue GI and DVT prophylaxis Code Status: Full Resuscitation Disposition: TBD Other: Total patient care time exceeds 35 minutes excluding all procedures. SHANIA ARCINIEGA Sep 13, 2024 12:09
--- NOTE | 2024-09-13 21:31 | PN ---
INFECTIOUS DISEASE PROGRESS NOTE Date of Service: Sep 13, 2024 SUBJECTIVE: This is a 48-year-old male patient who was seen and examined at bedside in room 327. Patient is s/p debridement of the right lower extremity wounds on 09/09/2024. Per nursing report wound cultures were barely sent yesterday. reported that if it necessary she is able to do the dressing changes at home as she has done before on previous admission. Patient is afebrile, temperature is 98.1 and the WBC is 6.0. Continues on vancomycin, cefepime and metronidazole. Will continue to follow patient's care. Patient reported that he would like to be discharged before the because he has an appointment for a sleep study on Friday the . No reports of nausea or vomiting. We will follow up on the wound cultures tomorrow. PHYSICAL EXAM EYES: Anicteric. Pupils equal and reactive. HENT: No oral thrush seen, moist Oral mucosa. NECK: Supple, no JVD or thyromegaly. LUNGS: Good air entry. No rales, no rhonchi. CARDIOVASCULAR: S1, S2 regular. No murmur heard. ABDOMEN: Soft, non tender, bowel sounds present, no organomegaly. CENTRAL NERVOUS SYSTEM: Awake, alert, oriented x 3. SKIN: No rashes, no swelling. LYMPHATICS: No peripheral lymphadenopathy. MUSCULOSKELETAL: No joint swelling, erythema or tenderness. EXTREMITIES: No cyanosis or clubbing. Wounds to the right lower extremity, s/p debridement. BACK: No deformity, no pressure ulcer. GENITOURINARY: No dysuria or hematuria. Vital Sign (Last 12 Hours) 09/13/24 09/13/24 09/13/24 10:00 12:00 15:52 Temp 98.4 98.2 Pulse 88 91 Resp 20 20 B/P (MAP) 143/86 128/70 Pulse Ox 95 96 97 O2 Delivery Room Air* Room Air Room Air O2 Flow Rate 0 FiO2 l Intake & Output (last 24hrs) 09/12/24 09/12/24 09/13/24 15:00 23:00 07:00 Intake Total 2100 ml Balance 2100 ml LABS: Laboratory: Test 09/13/24 05:14 09/12/24 10:30 Range/Units White Blood Count 6.0 4.8-10.8 K/uL Red Blood Count 3.94 L 4.50-6.20 MIL/uL Hemoglobin 10.8 L 14.0-18.0 g/dL Hematocrit 35.9 L 42-54 % Mean Corpuscular Volume 91.1 79-99 fL Mean Corpuscular Hemoglobin 27.4 27.0-33.0 pg Mean Corpuscular Hemoglobin Concent 30.1 L 32.0-36.0 g/dL Red Cell Distribution Width 16.5 H 11.0-15.5 % Platelet Count 232 130-400 K/uL Mean Platelet Volume 9.3 7.5-10.5 fL Nucleated Red Blood Cells 0.0 0.0-0.19 % Sodium Level 139 136-145 mmol/L Potassium Level 4.0 3.5-5.1 mmol/L Chloride Level 103 101-111 mmol/L Carbon Dioxide Level 32 21-32 mmol/L Blood Urea Nitrogen 15 7-18 mg/dL Creatinine 0.7 0.5-1.3 mg/dL Glomerular Filtration Rate Calc 112 >90 mL/min Random Glucose 100 70-105 mg/dL Total Calcium 8.9 8.5-10.1 mg/dL Vancomycin Level Trough 14.5 # 10.0-20.0 UG/ML ASSESSMENT: Right lower extremity abscess and ulcers, s/p debridement on 09/09/2024 Generalized pustulosis. Cellulitis to the lower extremity. Diabetes mellitus. Peripheral vascular disease. Morbid obesity. Recent right iliofemoral venogram/IVUS. May-Thurner syndrome. PLAN: Continue cefepime. Continue vancomycin. Continue metronidazole. Continue wound care. Continue pain management. We will follow up on the cultures results. This case was reviewed and discussed with my supervising physician and the above assessment and plan was formulated and agreed upon. ATTESTATION BY PHYSICIAN I have seen and examined the patient. I reviewed the documentation, medical decision making, and treatment plan as noted by the mid-level provider above. I agree with the findings and plan of care. CHATO BRIAN MD, [employer] Sep 13, 2024 21:31
[2024-09-14] VITALS (8 sets, daily range): BP systolic 139–152; BP diastolic 81–93; PULSE 86–105; RESP 16–19; TEMP 97.5–98.4; O2SAT 97–98
--- NOTE | 2024-09-14 12:00 | NUR ---
[facility] Follow-up: Patient refused wound care treatment to done at this time due to Wound care done by primary nurse at 0700. Addendum: 09/15/24 at 1609 by ROCK HUNT RN RN/ Amended: Links added.
[2024-09-14 15:07] LABS: INR 1.07 (0.85-1.15); PROTHROMBIN TIME 11.3 SEC (9.6-11.6)
[2024-09-14 15:08] LABS: PARTIAL THROMBOPLASTIN TIME 28.2 SEC (26.3-35.5)
--- NOTE | 2024-09-14 15:11 | PN ---
[facility] PROGRESS NOTE Date Patient Seen: Sep 14, 2024 Time of Visit: 15:11 Supervising Physician: Dr. Moises Lang Primary Care Physician: Dr. Christina Schneider Outpatient Specialists: Wound care Inpatient Consults: Wound care, ID and Gen surgery PROBLEM LIST: Right leg gangrenous wound. 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 Hx of left inguinal surgical wound complications status post foreign body removal in the left common femoral artery and vein by Dr. Park on 05/04/24 with Wound Vac Hx left inguinal soft tissue hematoma 7 x [address] scan on 05/20/2024 Plan: Continue IV abx per ID, pending cultures obtained from surgery GI and DVT ppx Abx per ID for disposition INTERVAL HISTORY: [Patient is evaluated at bedside. Continues with wound care per wound care recommendation. No osteomyelitis per CT lower extremity. Labs WNL. He is pending I&D per General surgery on . We will continue IV antibiotics in the meantime. Pending wound culture results. Venous doppler negative for DVT. Pain is well controlled.] 09/09 Patient is evaluated at bedside. Pending I&D today with general surgery with possible wound vac. Patient may be a candidate for [facility]. Will follow up with post surgery recommendations and need for IV abx per ID. Labs and vitals are unremarkable. No wound culture results. 09/10 Patient is evaluated at bedside. He is status post I and D yesterday with General surgery. Does not have wound VAC in place continues with IV antibiotics per ID. His labs remain unremarkable without leukocytosis. Pending cultures obtained from I&D. 09/11 patient is evaluated at bedside. His vitals are within normal limits, no fever overnight. He continues his wound care. Continues with IV antibiotic for ID, pending culture for final recommendation for antibiotics upon discharge given history of multidrug resistant organism. 09/12 patient evaluated at bedside, denies any acute pain at this time. Patient's wounds are all bandaged, followed by wound care. He continues on cefepime vanco and Flagyl at this time, pending authorization for home wound care as well as good free clinic. Patient under the impression that he will not be receiving IV antibiotics once he is discharged and that he will be sent home with oral medication. Pending confirmation of patient's disposition with case management tomorrow. Cultures pending. White count 5.5, patient denies any nausea vomiting, appetite is good. Vitals within normal limits. 09/13 patient evaluated at bedside today, discussion held regarding the patient's disposition in his desire to go home with wound care and oral antibiotics. Patient was advised that we are currently exploring options through his insurance, has been notified today that the patient's insurance actually comes to an end of the end of this month. Cultures have been ordered today as the patient's cultures previously taken were only for MRSA screening. He continues at this time on cefepime, vanco, Flagyl. White count today is 6.0. We will continue to monitor the patient's progress, wound care will be visiting the patient. No further changes to medical management pending updates from case management and insurance. 09/14 patient evaluated at bedside today, he appears to remain in good spirits, he continues with wound dressing changes, remains on cefepime vancomycin and Flagyl at this time, white count today is 6.0. Patient was received authorization for home wound care, currently pending final culture results, if culture results are returned with a requirement for IV antibiotics and discussion will have to be held with the patient as he is likely to attempt to refused treatment, however it was our believe that IV antibiotics if required we will be a significant part of his recovery process and without proper antibiotic therapy will for an extended period of time patient's prognosis remains poor. Patient was currently aware of the treatment plan, pending further updates from laboratory. REVIEW OF SYSTEMS: 12 point ROS reviewed with patient. Pertinent positives mentioned above. Otherwise negative. PHYSICAL EXAM: GENERAL: Alert, weak, awake oriented x 3. Severely obese HEENT: EOMI, Sclera non icteric, moist mucosa NECK: Supple, no JVD, trachea midline LUNGS: Clear breath sounds bilaterally. No wheezes HEART: Regular rate and rhythm. Normal S1 and S2, without murmurs ABD: Abdomen soft, nontender. Bowel sounds present EXT: No clubbing cyanosis or edema. RLE necrotic wound with purulent drainage NEURO: Alert and oriented to person, follows commands Vital Signs (last 8hr) Date Time Temp Pulse Resp B/P (MAP) Pulse Ox O2 Delivery O2 Flow Rate FiO2 09/14/24 12:00 97.5 86 18 143/81 94 Room Air 09/14/24 08:00 97 Room Air* 0 21 09/14/24 08:00 97.7 91 18 139/93 97 Room Air LABS: Hematology Labs: Test 09/13/24 05:14 Range/Units White Blood Count 6.0 4.8-10.8 K/uL Red Blood Count 3.94 L 4.50-6.20 MIL/uL Hemoglobin 10.8 L 14.0-18.0 g/dL Hematocrit 35.9 L 42-54 % Mean Corpuscular Volume 91.1 79-99 fL Mean Corpuscular Hemoglobin 27.4 27.0-33.0 pg Mean Corpuscular Hemoglobin Concent 30.1 L 32.0-36.0 g/dL Red Cell Distribution Width 16.5 H 11.0-15.5 % Platelet Count 232 130-400 K/uL Mean Platelet Volume 9.3 7.5-10.5 fL Nucleated Red Blood Cells 0.0 0.0-0.19 % Chemistry Labs: Test 09/13/24 05:14 Range/Units Sodium Level 139 136-145 mmol/L Potassium Level 4.0 3.5-5.1 mmol/L Chloride Level 103 101-111 mmol/L Carbon Dioxide Level 32 21-32 mmol/L Blood Urea Nitrogen 15 7-18 mg/dL Creatinine 0.7 0.5-1.3 mg/dL Glomerular Filtration Rate Calc 112 >90 mL/min Random Glucose 100 70-105 mg/dL Total Calcium 8.9 8.5-10.1 mg/dL Coagulation Labs: Test 09/14/24 14:52 Range/Units Prothrombin Time 11.3 9.6-11.6 SEC Prothromb Time International Ratio 1.07 0.85-1.15 Activated Partial Thromboplast Time 28.2 26.3-35.5 SEC DIAGNOSTICS / RADIOLOGY RESULTS: [ ] PLAN Diet: Heart healthy HTN: Hydralazine for systolic BP greater than 160. DM: Insulin sliding scale as ordered. DVT prophylaxis: Lovenox . GI prophylaxis: Protonix. Antiemetic: Zofran. Constipation: Lactulose. Pain: Tylenol /[place]/morphine for pain management and will adjust management as necessary. NEURO: Minimize central acting medications as possible. Maintain fall precautions, adequate lighting during the day PULMONARY: Supplemental 02 as needed. Maintain aspiration precautions at all times CARDIOVASCULAR: Follow hemodynamics. Vital signs per facility protocol GI & NUTRITION: Continue with nutritional support. Continue stool softeners and laxatives as needed. KIDNEYS & ELECTROLYTES: Strict monitoring of intake, output and overall fluid balance. Avoid nephrotoxic medications to the extent possible. Medications to be dosed according to renal function. Monitor electrolytes and replace as needed ENDOCRINE: Maintain blood glucose between 100-180 at all times. Hypoglycemia protocol in place INFECTIOUS DISEASE: Trend temperature, WBC and procalcitonin level Follow cultures, deescalate antibiotics as soon as possible. Panculture if new onset fever ONCOLOGY/HEMATOLOGY/COAGULATION: Monitor for s/s of bleeding Monitor hemoglobin, coagulation studies as needed SKIN: Pressure ulcer prevention per facility protocol Specialty mattress ORTHO/REHAB: Continue PT/OT Prophylaxis: Continue GI and DVT prophylaxis Code Status: Full Resuscitation Disposition: TBD Other: Total patient care time exceeds 35 minutes excluding all procedures. SHANIA ARCINIEGA Sep 14, 2024 15:11
--- NOTE | 2024-09-14 20:33 | HMCIMG ---
Exam Type: CHEST 1VW Clinical Information: PICC LINE VERIFICATION Comparison: None Findings: Right PICC line is noted with tip within the mid superior vena cava and there are no other interval changes. IMPRESSION: Right PICC line as noted.
--- NOTE | 2024-09-14 21:40 | NUR ---
NURSE NOTE\ WOUNDCARE DONE PER MD ORDERS. PATIENT TOLERATED WELL. PRE MEDICATED FOR PAIN.
--- NOTE | 2024-09-14 22:56 | PN ---
INFECTIOUS DISEASE PROGRESS NOTE Date of Service: Sep 14, 2024 SUBJECTIVE: This is a 48-year-old male patient who was seen and examined at bedside in room 327. Patient is s/p debridement of the right lower extremity wounds on 09/09/2024. No growth reported yet on the right leg wound cultures. No fever, temperature is 97.5. Continues on vancomycin, cefepime and metronidazole. We will have case management evaluate patient for referral to [facility] for outpatient IV antibiotics with vancomycin and cefepime for [address] PICC line. PHYSICAL EXAM EYES: Anicteric. Pupils equal and reactive. HENT: No oral thrush seen, moist Oral mucosa. NECK: Supple, no JVD or thyromegaly. LUNGS: Good air entry. No rales, no rhonchi. CARDIOVASCULAR: S1, S2 regular. No murmur heard. ABDOMEN: Soft, non tender, bowel sounds present, no organomegaly. CENTRAL NERVOUS SYSTEM: Awake, alert, oriented x 3. SKIN: No rashes, no swelling. LYMPHATICS: No peripheral lymphadenopathy. MUSCULOSKELETAL: No joint swelling, erythema or tenderness. EXTREMITIES: No cyanosis or clubbing. Wounds to the right lower extremity, s/p debridement. BACK: No deformity, no pressure ulcer. GENITOURINARY: No dysuria or hematuria. Vital Sign (Last 12 Hours) 09/14/24 09/14/24 09/14/24 12:00 16:00 20:00 Temp 97.5 97.9 98.4 Pulse 86 86 105 Resp 18 18 16 B/P (MAP) 143/81 152/81 144/93 Pulse Ox 94 96 98 O2 Delivery Room Air Room Air Room Air Intake & Output (last 24hrs) 09/13/24 09/13/24 09/14/24 15:00 23:00 07:00 Intake Total 1800 ml Balance 1800 ml LABS: Laboratory: Test 09/14/24 14:52 09/13/24 05:14 Range/Units Prothrombin Time 11.3 9.6-11.6 SEC Prothromb Time International Ratio 1.07 0.85-1.15 Activated Partial Thromboplast Time 28.2 26.3-35.5 SEC White Blood Count 6.0 4.8-10.8 K/uL Red Blood Count 3.94 L 4.50-6.20 MIL/uL Hemoglobin 10.8 L 14.0-18.0 g/dL Hematocrit 35.9 L 42-54 % Mean Corpuscular Volume 91.1 79-99 fL Mean Corpuscular Hemoglobin 27.4 27.0-33.0 pg Mean Corpuscular Hemoglobin Concent 30.1 L 32.0-36.0 g/dL Red Cell Distribution Width 16.5 H 11.0-15.5 % Platelet Count 232 130-400 K/uL Mean Platelet Volume 9.3 7.5-10.5 fL Nucleated Red Blood Cells 0.0 0.0-0.19 % Sodium Level 139 136-145 mmol/L Potassium Level 4.0 3.5-5.1 mmol/L Chloride Level 103 101-111 mmol/L Carbon Dioxide Level 32 21-32 mmol/L Blood Urea Nitrogen 15 7-18 mg/dL Creatinine 0.7 0.5-1.3 mg/dL Glomerular Filtration Rate Calc 112 >90 mL/min Random Glucose 100 70-105 mg/dL Total Calcium 8.9 8.5-10.1 mg/dL ASSESSMENT: Right lower extremity abscess and ulcers, s/p debridement on 09/09/2024 Generalized pustulosis. Cellulitis to the lower extremity. Diabetes mellitus. Peripheral vascular disease. Morbid obesity. Recent right iliofemoral venogram/IVUS. May-Thurner syndrome. PLAN: Continue cefepime. Continue vancomycin. Continue metronidazole. Continue wound care. Continue pain management. We will follow up on the cultures results. Case management evaluation for referral to [facility] for outpatient IV antibiotics with vancomycin and cefepime for 3 weeks. Prescription was written. We will place PICC line. This case was reviewed and discussed with my supervising physician and the above assessment and plan was formulated and agreed upon. ATTESTATION BY PHYSICIAN I have seen and examined the patient. I reviewed the documentation, medical decision making, and treatment plan as noted by the mid-level provider above. I agree with the findings and plan of care. CHATO BRIAN MD, MIRTA L [employer] SOFTWARE MANAGER Sep 14, 2024 22:56
[2024-09-15 04:00] VITALS: BP 148/89; PULSE 74; RESP 20; TEMP 98.7
[2024-09-15 04:24] LABS: HEMATOCRIT 32.8 % (42-54); MEAN CORPUSCULAR HEMOGLOBIN 27.9 pg (27.0-33.0); MEAN CORPUSCULAR HGB CONC 31.1 g/dL (32.0-36.0); MEAN CORPUSCULAR VOLUME 89.9 fL (79-99); RED BLOOD CELL COUNT(AUTO) 3.65 MIL/uL (4.50-6.20); RED CELL DISTRIBUTION WIDTH 17.2 % (11.0-15.5); WHITE BLOOD COUNT (AUTO) 6.4 K/uL (4.8-10.8)
--- NOTE | 2024-09-15 04:39 | NUR ---
PATIENT REFUSED MORNING WOUNDCARE AT THIS TIME. PATIENT HAS BEEN GETTING WOUNDCARE DONE BID AT 0500 AND IN PM .PATIENTS WOUNDCARE WAS DONE ON 09/14/24 AT .
[2024-09-15 04:42] LABS: CREATININE 0.7 mg/dL (0.5-1.3); POTASSIUM 3.7 mmol/L (3.5-5.1)
[2024-09-15 08:00] VITALS: BP 167/83; PULSE 88; RESP 20; TEMP 98.4; O2SAT 93
[2024-09-15 12:00] VITALS: BP 149/87; PULSE 86; RESP 20; TEMP 97.8
--- NOTE | 2024-09-15 19:46 | PN ---
INFECTIOUS DISEASE PROGRESS NOTE Date of Service: Sep 15, 2024 SUBJECTIVE: This is a 48-year-old male patient who was seen and examined at bedside in room 327. Patient is s/p debridement of the right lower extremity wounds on 09/09/2024. No fever, temperature is 97.9. PICC line has been placed and patient has been approved to [facility] for outpatient IV antibiotics with vancomycin and cefepime for 3 weeks. Patient is being discharged today. PHYSICAL EXAM EYES: Anicteric. Pupils equal and reactive. HENT: No oral thrush seen, moist Oral mucosa. NECK: Supple, no JVD or thyromegaly. LUNGS: Good air entry. No rales, no rhonchi. CARDIOVASCULAR: S1, S2 regular. No murmur heard. ABDOMEN: Soft, non tender, bowel sounds present, no organomegaly. CENTRAL NERVOUS SYSTEM: Awake, alert, oriented x 3. SKIN: No rashes, no swelling. LYMPHATICS: No peripheral lymphadenopathy. MUSCULOSKELETAL: No joint swelling, erythema or tenderness. EXTREMITIES: No cyanosis or clubbing. Wounds to the right lower extremity, s/p debridement. BACK: No deformity, no pressure ulcer. GENITOURINARY: No dysuria or hematuria. Vital Sign (Last 12 Hours) 09/15/24 09/15/24 09/15/24 08:00 08:00 12:00 Temp 98.4 97.9 Pulse 88 86 Resp 20 20 B/P (MAP) 167/83 149/87 Pulse Ox 93 93 95 O2 Delivery Room Air* Room Air Room Air O2 Flow Rate 0 FiO2 21 21 21 Intake & Output (last 24hrs) 09/14/24 09/14/24 09/15/24 15:00 23:00 07:00 Intake Total 200 ml Balance 200 ml LABS: Laboratory: Test 09/15/24 04:03 09/14/24 14:52 Range/Units White Blood Count 6.4 4.8-10.8 K/uL Red Blood Count 3.65 L 4.50-6.20 MIL/uL Hemoglobin 10.2 L 14.0-18.0 g/dL Hematocrit 32.8 L 42-54 % Mean Corpuscular Volume 89.9 79-99 fL Mean Corpuscular Hemoglobin 27.9 27.0-33.0 pg Mean Corpuscular Hemoglobin Concent 31.1 L 32.0-36.0 g/dL Red Cell Distribution Width 17.2 H 11.0-15.5 % Platelet Count 217 130-400 K/uL Mean Platelet Volume 10.0 7.5-10.5 fL Nucleated Red Blood Cells 0.0 0.0-0.19 % Sodium Level 137 136-145 mmol/L Potassium Level 3.7 3.5-5.1 mmol/L Chloride Level 104 101-111 mmol/L Carbon Dioxide Level 29 21-32 mmol/L Blood Urea Nitrogen 12 7-18 mg/dL Creatinine 0.7 0.5-1.3 mg/dL Glomerular Filtration Rate Calc 112 >90 mL/min Random Glucose 111 H 70-105 mg/dL Total Calcium 8.5 8.5-10.1 mg/dL Prothrombin Time 11.3 9.6-11.6 SEC Prothromb Time International Ratio 1.07 0.85-1.15 Activated Partial Thromboplast Time 28.2 26.3-35.5 SEC ASSESSMENT: Right lower extremity abscess and ulcers, s/p debridement on 09/09/2024 Generalized pustulosis. Cellulitis to the lower extremity. Diabetes mellitus. Peripheral vascular disease. Morbid obesity. Recent right iliofemoral venogram/IVUS. May-Thurner syndrome. PLAN: PICC line has been placed. Patient has been approved to [facility] for outpatient IV antibiotics with vancomycin and cefepime for 3 weeks and being discharged today. This case was reviewed and discussed with my supervising physician and the above assessment and plan was formulated and agreed upon. ATTESTATION BY PHYSICIAN I have seen and examined the patient. I reviewed the documentation, medical decision making, and treatment plan as noted by the mid-level provider above. I agree with the findings and plan of care. CHATO BRIAN MD, MIRTA L [facility] Sep 15, 2024 19:46
--- NOTE | 2024-09-15 22:47 | DS ---
[facility] DISCHARGE SUMMARY Date Patient Seen: Sep 15, 2024 Time of Visit: 22:45 Supervising Physician: EPHRAIM GAGE MD Primary Care Physician: Dr. Christina cShneider Outpatient Specialists: Wound care Inpatient Consults: Wound care, ID and Gen surgery PROBLEM LIST: Right leg gangrenous wound. 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 Hx of left inguinal surgical wound complications status post foreign body removal in the left common femoral artery and vein by Dr. 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 PCP notified of patients admission, hospital course and discharge. PHYSICAL EXAM: GENERAL: Alert, weak, awake oriented x 3. Severely obese HEENT: EOMI, Sclera non icteric, moist mucosa NECK: Supple, no JVD, trachea midline LUNGS: Clear breath sounds bilaterally. No wheezes HEART: Regular rate and rhythm. Normal S1 and S2, without murmurs ABD: Abdomen soft, nontender. Bowel sounds present EXT: No clubbing cyanosis or edema. RLE necrotic wound with purulent drainage NEURO: Alert and oriented to person, follows commands FOLLOW-UP: Follow-up with PCP in 2-3 days RECOMMENDATIONS: See Discharge Instructions Time spent with patient, nurse and case management during discharge planning; 35 minutes I personally scribed for EPHRAIM GAGE MD ([email or web address]) on 09/15/24 at 22:47. Electronically submitted by Rg Cabello ([email or web address]). EPHRAIM GAGE MD Sep 15, 2024 22:47
== END 2024-09-15 15:50 | disposition home health service (06) | DRG 264 ==
LOC: EDH 09:06 → EDHIP 10:24 → 3DH 13:45
PROVIDERS: ADMIT Internal Medicine Pulmonary Disease; ATTEND Internal Medicine Pulmonary Disease
PROC: 0JBN0ZZ Excision of Right Lower Leg Subcutaneous Tissue and Fascia, Open Approach (ICD-10-PCS; principal; 2024-09-09 12:00)
PROC: 02HV33Z Insertion of Infusion Device into Superior Vena Cava, Percutaneous Approach (ICD-10-PCS; 2024-09-14)
DX: E11.52 Type 2 diabetes mellitus with diabetic peripheral angiopathy with gangrene (principal); I87.1 Compression of vein; E46 Unspecified protein-calorie malnutrition; L02.415 Cutaneous abscess of right lower limb; L97.919 Non-pressure chronic ulcer of unspecified part of right lower leg with unspecified severity; Z68.44 Body mass index [BMI] 60.0-69.9, adult; L03.115 Cellulitis of right lower limb; L03.311 Cellulitis of abdominal wall; Z16.24 Resistance to multiple antibiotics; E66.01 Morbid (severe) obesity due to excess calories; G47.33 Obstructive sleep apnea (adult) (pediatric); I10 Essential (primary) hypertension; Z79.899 Other long term (current) drug therapy
CPT/HCPCS: 36415; 36569; 71045; 73700; 80048; 80202; 82948; 83605; 83735; 84145; 85025; 85027; 85610; 85651; 85730; 86140; 87070; 87076; 87641; 93925; 93970; A4606; A6407; C1894; G0378; J0692; J1100; J1650; J1815; J2405; J2704; J2710; J3010; J3475; J3490; A4216; A4222; A4223; A4930; A6260; J3370